=== PATIENT | male | born 1935 | race Caucasian/White ===

== ENCOUNTER 2016-05-17 21:34 | Inpatient (IN) | payer MEDICARE, OTHER ==
--- NOTE | 2016-05-17 21:53 | EDPRACDOC ---
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 PT UNFORTUNATELY HAS VERY ADVANCED DEMENTIA AND IS UNABLE TO PROVIDE ANY HISTORY. Pain Severity: Reports: Moderate Injuries/Pain Location: Reports: lower extremity Reason for Fall: Reports: unknown Loss of Consciousness: unsure Modifying Factors: improves with: movement <Leroy Friend - Last Filed: 05/17/16 23:58> - General Chief Complaint: Fall Stated Complaint: FALL Time Seen by Provider: 05/17/16 21:44 - History of Present Illness Allergies/Adverse Reactions: Allergies donepezil Allergy (Verified 12/19/15 17:34) See Comments HALLUCINATIONS memantine HCl [From Namenda] Allergy (Verified 12/19/15 17:34) See Comments HALLUCINATIONS Home Medications: Ambulatory Orders Alfuzosin HCl [Alfuzosin HCl ER] 10 mg PO DAILY 09/02/14 Dutasteride [Avodart] 0.5 mg PO DAILY 09/02/14 Isosorbide Mononitrate [Isosorbide Mononitrate ER] 30 mg PO DAILY 09/02/14 Omeprazole [Prilosec] 20 mg PO BID 09/02/14 Quetiapine Fumarate [Seroquel] 25 mg PO TID 10/25/15 Acetaminophen [Mapap] 1,000 mg PO Q6H PRN 05/17/16 ED Past Medical History - History Reviewed Yes Nurses notes reviewed and agree except as marked Information Unobtainable: Yes Unable to obtain information due to patient condition - Patient Medical History Neurological History: Reports: Dementia (Alzheimer's) Cardiac History: Reports: Coronary Artery Disease, Hypertension, Hypercholesterolemia GI/ History: Reports: Gastroesophageal Reflux, Diverticulosis Musculoskeletal History: Reports: Arthritis Psychological History: Reports: Depression, Anxiety. Denies: Substance Use Disorder Systemic History: Reports: Cancer (PROSTATE) Surgical History: Reports: Other (Cataracts, XRT for prostate cancer) Date of Last Radiation Treatment: 2004? - Family Medical History Reports: Hypertension, Cancer (MOM). Denies: Diabetes, Stroke, Cardiac Disorders - Social Medical History Smoking Status: Former smoker Social History: Denies: Substance Use Disorder <Leroy Friend - Last Filed: 05/17/16 23:58> EDM Review of Systems - Review of Systems ROS Unobtainable: Yes Review of systems cannot be obtained due to the patient's medical condition <Leroy Friend - Last Filed: 05/17/16 23:58> - Physical Exam Last recorded Vital Signs: Last Vital Signs Temp 98.5 F 05/17/16 21:45 Pulse 68 05/17/16 21:45 Resp 18 05/17/16 21:45 BP 170/83 05/17/16 21:45 Pulse Ox 93 05/17/16 21:45 Oxygen Pulse Oxygen Saturation 93 O2 Device Oxygen Flow Rate Fraction of Inspired Oxygen ( FIO2) <Mati Lucero - Last Filed: 05/17/16 22:56> - Physical Exam Constitutional: Alert (Awake), No apparent distress Oriented to: Person Last recorded Vital Signs: Oxygen Pulse Oxygen Saturation O2 Device Oxygen Flow Rate Fraction of Inspired Oxygen ( FIO2) - HEENT Head: Normal ( normocephalic) Eye Exam: Normal (PERRL, EOMI, Sclera white) Oropharynx: Normal (Pharynx:Moist without exudate,Gums-no swelling) Tympanic Membrane: Normal ENT EAC: Normal TMJ: Normal Nose: No Symptoms Reported (septum midline) Neck: Normal (FROM, trachea at midline) - Respiratory/Cardiovascular Respiratory: Normal - CTA (BBS clear to auscultation without adventitious sounds ) Cardiovascular: Normal (RRR without murmur, gallop or rub) - GI Auscultation: Normal (NABS) Palpation: Normal (Soft,No rebound or guarding, non distended) Tenderness: Non tender Burrell's Sign: Negative - Musculoskeletal Back: negative: Thoracic TTP, Lumbar TTP - Integumentary Skin: Normal, Warm, Dry Lymphatics: Normal (no adenopathy) - Neurologic Memory Impaired: Short-term, Long-term Motor Function: Unable to Test Cranial Nerve: Unable to Test Cerebellar: Unable to Test Mood Description: Normal Thought: Coherent Perception: Normal <Leroy Friend - Last Filed: 05/17/16 23:58> ED Injury/Fall Exam - Physical Exam Head Injury: no evidence of injury Extremity Exam: bony-point tenderness (LEFT HIP AND LEFT KNE), pain with movement (LEFT HIP AND LEFT KNEE), tenderness - Florian Coma Score Best Eye Response (Florian): (4) open spontaneously Best Verbal Response ([place]): (4) confused conversation Best Motor Response (Florian): (6) obeys commands Florian Total: 14 <Leroy Friend - Last Filed: 05/17/16 23:58> - Differential Diagnosis Contusion, Fracture, Sprain - Re-evaluation Re-evaluation 1 Re-evaluation Time: 23:05 (STABLE) - Results 05/17/16 23:15 05/17/16 23:15 - EKG EKG #1 EKG Time: 23:54 -: Yes EKG interpreted by me Rate: bpm: 86 [place]: Normal Rhythm: NSR Block: None Hypertrophy: None ST: Nonsp Comparison: 12/19/15 (NO CHANGE) - Diagnostic Imaging LEFT FEMUR Image interpreted by: Radiologist LEFT FEMUR - 2 VIEW COMPARISON: None. FINDINGS: A subcapital fracture is suspected through the left femoral neck, on correlation with concurrent left hip radiographs. The distal femur appears intact. The knee joint is grossly unremarkable in appearance. A fabella is noted. No knee joint effusion is seen. Diffuse vascular calcifications are noted. IMPRESSION: Subcapital fracture suspected through the left femoral neck, on correlation with concurrent left hip radiographs. No additional fracture seen. Diffuse vascular calcifications noted. LEFT KNEE Image interpreted by: Radiologist LEFT KNEE - COMPLETE 4+ VIEW COMPARISON: None. FINDINGS: No acute fracture or dislocation. There is mild osteopenia. There is narrowing of the knee compartments, more prominent involving the medial compartment compatible with chronic an osteoarthritic changes. No joint effusion. The soft tissues appear unremarkable. IMPRESSION: No fracture or dislocation. LEFT HIP Image interpreted by: Radiologist LEFT HIP (WITH PELVIS) 2-3 VIEWS COMPARISON: CT of the abdomen and pelvis performed 09/02/2014 FINDINGS: Mild cortical irregularity along the base of the left femoral head is thought to reflect a subcapital fracture through the left femoral neck. The left femoral head remains seated at the acetabulum. Mild degenerative change is noted at the lower lumbar spine. The right hip joint is unremarkable in appearance. Postoperative change is seen overlying the prostate bed. The sacroiliac joints are unremarkable in appearance. The visualized bowel gas pattern is grossly unremarkable in appearance. IMPRESSION: Suspect subcapital fracture through the left femoral neck. CXR Image interpreted by: Radiologist CHEST 1 VIEW COMPARISON: Multiple priors, most recently chest x-ray 12/19/2015. FINDINGS: No acute consolidative airspace disease. No pleural effusions. Nodular density projecting over the lateral aspect of the right lower lung measuring approximately 11 mm superimposed over the posterior aspect of the right eighth rib and the anterior aspect of the right fifth rib. No pneumothorax. No evidence of pulmonary edema. Heart size is normal. Upper mediastinal contours are within normal limits. Atherosclerosis in the thoracic aorta. IMPRESSION: 1. No radiographic evidence of acute cardiopulmonary disease. 2. Atherosclerosis. 3. Nodular density projecting over the right mid lung new compared to prior examination 09/02/2014. Further evaluation with nonemergent chest CT is recommended in the near future to exclude neoplasm. <Leroy Friend - Last Filed: 05/17/16 23:58> - Departure Yes I personally saw and evaluated the patient. Disposition: Admit IP To This Hospital Education/Counseling Given To: Patient Education/Counseling Given Regarding: Diagnosis, Treatment, Prognosis Decision to Admit Time: 22:56 Decision to admit date: 05/17/16 Decision to admit: from ED - Physician Consulted Orthopedics Time Called: 22:56 Provider Called: Israel Burden Time Digital Marketing Assistant Returned Call: 22:56 <Mati Lucero - Last Filed: 05/17/16 22:56> <Leroy Friend - Last Filed: 05/17/16 23:58> - Departure Condition: Stable Final Diagnosis: Closed left hip fracture Qualifiers: Encounter type: initial encounter Qualified Code(s): S72.002A - Fracture of unspecified part of neck of left femur, initial encounter for closed fracture Instructions: RICE: Routine Care for Injuries Referrals: Arvind Loo MD [Primary Care Provider] - One Week
[2016-05-17] MEDS ORDERED: MORPHINE 4 MG/ML INJECTION IV ONE (22:49)
[2016-05-17] MEDS ORDERED: ONDANSETRON HCL 4 MG/2 ML VIAL IV ONE (22:49)
--- NOTE | 2016-05-17 22:59 | DIRPT ---
CLINICAL DATA: Acute onset of fall twice today, with left hip pain. Initial encounter. EXAM: LEFT HIP (WITH PELVIS) 2-3 VIEWS COMPARISON: CT of the abdomen and pelvis performed 09/02/2014 FINDINGS: Mild cortical irregularity along the base of the left femoral head is thought to reflect a subcapital fracture through the left femoral neck. The left femoral head remains seated at the acetabulum. Mild degenerative change is noted at the lower lumbar spine. The right hip joint is unremarkable in appearance. Postoperative change is seen overlying the prostate bed. The sacroiliac joints are unremarkable in appearance. The visualized bowel gas pattern is grossly unremarkable in appearance. IMPRESSION: Suspect subcapital fracture through the left femoral neck. Electronically Signed By: Gorge Be M.D. On: 05/17/2016 22:57
--- NOTE | 2016-05-17 23:08 | DIRPT ---
CLINICAL DATA: 80-year-old male with fall and left knee pain. EXAM: LEFT KNEE - COMPLETE 4+ VIEW COMPARISON: None. FINDINGS: No acute fracture or dislocation. There is mild osteopenia. There is narrowing of the knee compartments, more prominent involving the medial compartment compatible with chronic an osteoarthritic changes. No joint effusion. The soft tissues appear unremarkable. IMPRESSION: No fracture or dislocation. Electronically Signed By: Layo Solorzano M.D. On: 05/17/2016 23:05
--- NOTE | 2016-05-17 23:09 | DIRPT ---
CLINICAL DATA: Status post 2 falls, with left leg pain. Initial encounter. EXAM: LEFT FEMUR - 2 VIEW COMPARISON: None. FINDINGS: A subcapital fracture is suspected through the left femoral neck, on correlation with concurrent left hip radiographs. The distal femur appears intact. The knee joint is grossly unremarkable in appearance. A fabella is noted. No knee joint effusion is seen. Diffuse vascular calcifications are noted. IMPRESSION: Subcapital fracture suspected through the left femoral neck, on correlation with concurrent left hip radiographs. No additional fracture seen. Diffuse vascular calcifications noted. Electronically Signed By: Gorge Be M.D. On: 05/17/2016 23:06
--- NOTE | 2016-05-17 23:10 | DIRPT ---
CLINICAL DATA: 80-year-old male with history of multiple recent falls earlier today. Left hip pain. EXAM: CHEST 1 VIEW COMPARISON: Multiple priors, most recently chest x-ray 12/19/2015. FINDINGS: No acute consolidative airspace disease. No pleural effusions. Nodular density projecting over the lateral aspect of the right lower lung measuring approximately 11 mm superimposed over the posterior aspect of the right eighth rib and the anterior aspect of the right fifth rib. No pneumothorax. No evidence of pulmonary edema. Heart size is normal. Upper mediastinal contours are within normal limits. Atherosclerosis in the thoracic aorta. IMPRESSION: 1. No radiographic evidence of acute cardiopulmonary disease. 2. Atherosclerosis. 3. Nodular density projecting over the right mid lung new compared to prior examination 09/02/2014. Further evaluation with nonemergent chest CT is recommended in the near future to exclude neoplasm. Electronically Signed By: Refugio Haywood M.D. On: 05/17/2016 23:08
[2016-05-17] MEDS ORDERED: CHLORHEXIDINE (HIBICLENS) 4 OZ BOTTLE TOP ONE (23:21)
[2016-05-17] MEDS ORDERED: ENALAPRILAT 1.25 MG/ML VIAL IV ONE (23:28)
--- NOTE | 2016-05-17 23:33 | HISTPHYS ---
- Chief Complaint left hip pain - History of Present Illness PRIMARY CARE PROVIDER: Dr. Arvind Loo Patient resides at [facility] assisted living facility. HPI: The patient is a 68 yo man with severe dementia, who fell at [facility] this evening. He was brought to the emergency department and found to have a left hip fracture. He cannot give history so his sister gives history. The patient's daughter has healthcare power of atty, but the daughter is herself hospitalized with an acute stroke, so will not be able to serve as POA currently. Onset: today. Duration: constant. Location: left hip. Radiation: none. Character: sharp, severe. Alleviated by: Nothing. Exacerbated by: Moving. Associated Symptoms: None known. Treatments: none at home except usual medications. - Medical History Cardiac History: Reports: Hypertension, Hypercholesterolemia GI/ History: Reports: Gastroesophageal Reflux (GI bleed 2014 x 2. EGD 2015: sm antral polyp not removed, no UGI bleeding.), Diverticulosis (Colonoscopy Dr. Monson, 08/2014, diverticular bleed) Musculoskeletal History: Reports: Arthritis Systemic History: Reports: Cancer (PROSTATE) Neurological History: Reports: Dementia (Alzheimer's) Psychological History: Reports: Depression, Anxiety. Denies: Substance Use Disorder - Surgical History Reports: Other (Cataracts, XRT for prostate cancer) - Medictions/Allergies Allergies donepezil Allergy (Verified 12/19/15 17:34) See Comments HALLUCINATIONS memantine HCl [From Namenda] Allergy (Verified 12/19/15 17:34) See Comments HALLUCINATIONS Current Medication List: Reviewed Home Medications Alfuzosin HCl [Alfuzosin HCl ER] 10 mg PO DAILY 09/02/14 Dutasteride [Avodart] 0.5 mg PO DAILY 09/02/14 Isosorbide Mononitrate [Isosorbide Mononitrate ER] 30 mg PO DAILY 09/02/14 Omeprazole [Prilosec] 20 mg PO BID 09/02/14 Quetiapine Fumarate [Seroquel] 25 mg PO TID 10/25/15 Acetaminophen [Mapap] 1,000 mg PO Q6H PRN 05/17/16 - Family History Reports: Hypertension (Mother), Diabetes (Sister, possibly grandfather), Cancer (Mother: lung cancer), Other (Mother: Raynauds). Denies: Stroke, Cardiac Disorders - Social History Smoking Status: Former smoker (Former smoker, quit years ago.) Social History: Denies: Alcohol Use, Substance Use Disorder - Review of Systems Yes Review of systems cannot be obtained due to the patient's medical condition - Physical Exam Vital Signs: Initial Vitals Temperature 98.5 F 05/17/16 21:45 Pulse Rate 68 05/17/16 21:45 Respiratory Rate 18 05/17/16 21:45 Blood Pressure 170/83 05/17/16 21:45 Pulse Oxygen Saturation 93 05/17/16 21:45 Weight: 63.5 kg Height: 5'9" BMI: 20.7 - Other Exam Other Exam Findings: GENERAL: Ill-appearing, well nourished, in acute distress. HEENT: Normocephalic, atraumatic; pupils equal and round. Nares patent, without discharge or bleeding. No oropharyngeal lesions or erythema. Mucous membranes are dry. NECK: is supple, no masses, trachea midline. RESPIRATORY: Clear to auscultation bilaterally. Chest wall movements are symmetric. No use of accessory muscles to breathe. No wheezing, rales, rhonchi. CARDIOVASCULAR: Normal S1, S2. Murmur 2/6 systolic. No rubs, or gallops. PMI non -displaced. Carotids: no carotid bruits. No bradycardia or tachycardia. DP pulses 2+ bilaterally. GI: soft, nontender, non-distended, normal active bowel sounds. No hepatosplenomegaly. INTEGUMENT: Clean, dry, and intact. No rashes. MUSCULOSKELETAL: No cyanosis. No clubbing. Edema: none bilaterally. Tenderness to palpation of the left hip. NEUROLOGICAL: Cranial nerves 2-12 grossly intact, as best can be determined in this patient who is not following commands. Reflexes: 2+ bilaterally. Babinski: toes downgoing bilaterally. Patient unable to cooperate with further neurologic exam. He would say a few words but otherwise was silent. Words he said did not usually correspond to the question asked. No slurred speech. PSYCHIATRIC: Not oriented. Agitated affect. LYMPHATIC: No cervical lymphadenopathy. No supraclavicular lymphadenopathy. - Lab Results Laboratory Tests 05/17/16 05/17/16 05/17/16 23:15 23:15 23:15 WBC 11.4 H RBC 3.65 L Hgb 10.9 L Hct 33.2 L MCV 91 MCH 29.8 MCHC 32.7 L RDW 14.6 H Plt Count 192 MPV 9.0 Neut % (Auto) 72.0 Lymph % (Auto) 20.4 [place] % (Auto) 6.5 Eos % (Auto) 0.5 Baso % (Auto) 0.6 Absolute Neuts (auto) 8.21 H Absolute Lymphs (auto) 2.28 PT 12.9 H INR 1.3 APTT 27.4 Sodium 141 Potassium 4.1 Chloride 105 Carbon Dioxide 28 Anion Gap 12 BUN 31 H Creatinine 1.00 Estimated GFR (MDRD) > 60 Glucose 92 Calculated Osmolality 278 Calcium 9.0 Corrected Calcium 9.3 Total Bilirubin 0.6 AST 26 ALT 35 Alkaline Phosphatase 97 Creatine Kinase 86 Troponin I < 0.01 Total Protein 6.9 Albumin 3.7 Urine Color Urine Clarity Urine pH Ur Specific [place] Urine Protein Urine Glucose (UA) Urine Ketones Urine Occult Blood Urine Nitrite Urine Bilirubin Urine Urobilinogen Ur Leukocyte Esterase Urine WBC Ur Epithelial Cells Urine Mucus Blood Type Antibody Screen - Diagnostic Findings EK bpm. Normal sinus rhythm. Low voltage. Cannot rule out anterior infarct , age undetermined. Reviewed EKG personally. Hip/Pelvis x-ray: EXAM: LEFT HIP (WITH PELVIS) 2-3 VIEWS COMPARISON: CT of the abdomen and pelvis performed 09/02/2014 FINDINGS: Mild cortical irregularity along the base of the left femoral head is thought to reflect a subcapital fracture through the left femoral neck. The left femoral head remains seated at the acetabulum. Mild degenerative change is noted at the lower lumbar spine. The right hip joint is unremarkable in appearance. Postoperative change is seen overlying the prostate bed. The sacroiliac joints are unremarkable in appearance. The visualized bowel gas pattern is grossly unremarkable in appearance. IMPRESSION: Suspect subcapital fracture through the left femoral neck. EXAM: LEFT FEMUR - 2 VIEW COMPARISON: None. FINDINGS: A subcapital fracture is suspected through the left femoral neck, on correlation with concurrent left hip radiographs. The distal femur appears intact. The knee joint is grossly unremarkable in appearance. A fabella is noted. No knee joint effusion is seen. Diffuse vascular calcifications are noted. IMPRESSION: Subcapital fracture suspected through the left femoral neck, on correlation with concurrent left hip radiographs. No additional fracture seen. Diffuse vascular calcifications noted. EXAM: LEFT KNEE - COMPLETE 4+ VIEW COMPARISON: None. FINDINGS: No acute fracture or dislocation. There is mild osteopenia. There is narrowing of the knee compartments, more prominent involving the medial compartment compatible with chronic an osteoarthritic changes. No joint effusion. The soft tissues appear unremarkable. IMPRESSION: No fracture or dislocation. Chest x-ray, viewed personally: EXAM: CHEST 1 VIEW COMPARISON: Multiple priors, most recently chest x-ray 12/19/2015. FINDINGS: No acute consolidative airspace disease. No pleural effusions. Nodular density projecting over the lateral aspect of the right lower lung measuring approximately 11 mm superimposed over the posterior aspect of the right eighth rib and the anterior aspect of the right fifth rib. No pneumothorax. No evidence of pulmonary edema. Heart size is normal. Upper mediastinal contours are within normal limits. Atherosclerosis in the thoracic aorta. IMPRESSION: 1. No radiographic evidence of acute cardiopulmonary disease. 2. Atherosclerosis. 3. Nodular density projecting over the right mid lung new compared to prior examination 09/02/2014. Further evaluation with nonemergent chest CT is recommended in the near future to exclude neoplasm. - Assessment (1) Closed left hip fracture S72.002A - FRACTURE OF UNSP PART OF NECK OF LEFT FEMUR, INIT Acute Qualifiers: Encounter type: initial encounter Fracture healing: F Qualified Code(s): S72.002A - Fracture of unspecified part of neck of left femur, initial encounter for closed fracture Patient is at moderate risk due to comorbidities and age. Recommend proceeding with surgery if family wants to proceed. (2) Pulmonary nodule R91.1 - SOLITARY PULMONARY NODULE Acute Present on Admission: Yes Found on x-ray. Patient's sister informed. CXR findings: IMPRESSION: 1. No radiographic evidence of acute cardiopulmonary disease. 2. Atherosclerosis. 3. Nodular density projecting over the right mid lung new compared to prior examination 09/02/2014. Further evaluation with nonemergent chest CT is recommended in the near future to exclude neoplasm Plan: Outpatient follow up with primary care physician for further evaluation. (3) Left hip pain M25.552 - PAIN IN LEFT HIP Acute Present on Admission: Yes PRN IV morphine. (4) Dehydration E86.0 - DEHYDRATION Acute Present on Admission: Yes IVF (5) Alzheimer's dementia G30.9 - ALZHEIMER'S DISEASE, UNSPECIFIED; F02.80 - DEMENTIA IN OTH DISEASES CLASSD ELSWHR W/O BEHAVRL DISTURB Chronic Plan: Will be difficult to conduct physical therapy due to patient's dementia. Monitor. Supportive care. Case Care Discussed with: Patient, Consultants, Family, Nursing Staff Total Time: 60 min
[2016-05-17 23:37] LABS: AUTOMATED BASOPHIL 0.6 % (0-2); AUTOMATED EOSINOPHIL 0.5 % (0-5); AUTOMATED LYMPH 20.4 % (17-44); AUTOMATED MONOCYTE 6.5 % (3-10)
[2016-05-17 23:44] LABS: PARTIAL THROMB. TIME 27.4 SEC (22-35); PT-INR 1.3
[2016-05-17] MEDS ORDERED: MUPIROCIN 2% OINT 22 GM TUBE NAS SCH (23:45)
[2016-05-17 23:53] LABS: BLOOD UREA NITROGEN 31 MG/DL (9-20); CALC CORRECTED 9.3 MG/DL (8.4-10.2); CALCULATED OSMOLALITY 278 MOs/Kg (270-290); CHLORIDE 105 mEq/L (98-107); CPK TOTAL WITH POSSIBLE MB 86 IU/L (55-170); GLUCOSE 92 MG/DL (70-99); SODIUM LEVEL 141 mEq/L (137-146); TOTAL PROTEIN 6.9 G/DL (6.3-8.2)
[2016-05-18] MEDS ORDERED: ACETAMINOPHEN 325 MG SUPP PR PRN (00:44)
[2016-05-18] MEDS ORDERED: ACETAMINOPHEN 325 MG/TAB TABLET PO PRN (00:44)
[2016-05-18] MEDS ORDERED: GUAIFEN 100 MG-DEXTROMETH 10 MG PER 5 ML PO PRN (00:44)
[2016-05-18] MEDS ORDERED: PROMETHAZINE 25 MG/ML VIAL IV PRN (00:44)
[2016-05-18] MEDS ORDERED: SIMETHICONE 80 MG TAB PO PRN (00:44)
[2016-05-18] MEDS ORDERED: Docusate Sodium 100 MG CAP PO PRN (00:44)
[2016-05-18] MEDS ORDERED: SENNA CONCENTRATE TAB PO PRN (00:44)
[2016-05-18] MEDS ORDERED: TEMAZEPAM 15 MG CAP PO PRN (00:44)
[2016-05-18] MEDS ORDERED: ONDANSETRON HCL 4 MG/2 ML VIAL IV PRN ×2 (00:44→14:17)
[2016-05-18] MEDS ORDERED: BISACODYL 5 MG TAB PO PRN (00:44)
[2016-05-18] MEDS ORDERED: BENZONATATE 100 MG PERLES PO PRN (00:44)
[2016-05-18] MEDS: NS 1,000 ML IV SCH ×3 (01:04→13:04)
[2016-05-18] MEDS: HALOPERIDOL 5 MG/ML VIAL IM ONE (01:25)
[2016-05-18 01:26] LABS: LEUKOCYTES/URINE NEG (NEGATIVE); NITRITE/URINE NEG (NEGATIVE); URINE OCCULT BLOOD NEG (NEG/TRACE)
[2016-05-18 01:29] LABS: WBC/URINE 0-2 (0-2)
[2016-05-18] MEDS: ISOSORBIDE MONONITRATE 30 MG TAB PO SCH (05:40)
[2016-05-18] MEDS: QUETIAPINE FUMARATE 25 MG TAB PO SCH ×2 (05:40→14:09)
[2016-05-18] MEDS: PANTOPRAZOLE 40 MG TAB PO SCH (05:40)
[2016-05-18] MEDS ORDERED: CEFAZOLIN 1 GM VIAL IV ONE (06:00)
--- NOTE | 2016-05-18 07:46 | PCM.ORTHCO ---
Consultation Date: 05/18/16 Requesting Physician: Emmanuel Live Reason for Consult: Fracture - History of Present Illness The patient is a 68 yo man with dementia, who fell at [facility] last night. Fall was unwitnessed. He was brought to the emergency department and found to have a left hip fracture. He cannot give history so his sister gave history. Chief Complaint: left hip pain - Past Medical and Surgical History Cardiac History: Reports: Coronary Artery Disease, Hypertension, Hypercholesterolemia GI/ History: Reports: Gastroesophageal Reflux, Diverticulosis Systemic History: Reports: Cancer (PROSTATE) Musculoskeletal History: Reports: Arthritis Psychological History: Reports: Depression, Anxiety. Denies: Alcoholism, Substance Use Disorder Neurological History: Reports: Dementia (Alzheimer's) Past Surgical History: Reports: Other (Cataracts, XRT for prostate cancer) Allergies donepezil Allergy (Verified 12/19/15 17:34) See Comments HALLUCINATIONS memantine HCl [From Namenda] Allergy (Verified 12/19/15 17:34) See Comments HALLUCINATIONS Home Medications Alfuzosin HCl [Alfuzosin HCl ER] 10 mg PO DAILY 09/02/14 Dutasteride [Avodart] 0.5 mg PO DAILY 09/02/14 Isosorbide Mononitrate [Isosorbide Mononitrate ER] 30 mg PO DAILY 09/02/14 Omeprazole [Prilosec] 20 mg PO BID 09/02/14 Quetiapine Fumarate [Seroquel] 25 mg PO TID 10/25/15 Acetaminophen [Mapap] 1,000 mg PO Q6H PRN 05/17/16 - Social History Smoking Status: Former smoker (Former smoker, quit years ago.) Social History: Denies: Alcohol Use, Substance Use Disorder - Family History Reports: Hypertension (Mother), Diabetes (Sister, possibly grandfather), Cancer (Mother: lung cancer), Other (Mother: Raynauds). Denies: Stroke, Cardiac Disorders - Review of Systems Yes Review of systems cannot be obtained due to the patient's medical condition (confused and sleepy through exam) - Physical Exam Vital Signs: Initial Vitals Temperature 98.5 F 05/17/16 21:45 Pulse Rate 68 05/17/16 21:45 Respiratory Rate 18 05/17/16 21:45 Blood Pressure 170/83 05/17/16 21:45 Pulse Oxygen Saturation 93 05/17/16 21:45 Constitutional: No apparent distress, Confused Oriented to: Not Oriented - Musculoskeletal Extremities: Pedal Pulse (2+), Other (LLE: Shortened and externally rotated. Tender to palpation of groin and positive log roll. No erythema or ecchymosis. Skin intact. ROM not tested. Pedal pulse 2+ and brisk capillary refill.) - Integumentary Skin: Normal - Neurologic Memory Impaired: Unable to Test Motor Function: Unable to Test - Lab Results Laboratory Results - last 24 hr 05/17/16 05/17/16 05/17/16 23:15 23:15 23:15 WBC 11.4 H RBC 3.65 L Hgb 10.9 L Hct 33.2 L MCV 91 MCH 29.8 MCHC 32.7 L RDW 14.6 H Plt Count 192 MPV 9.0 Neut % (Auto) 72.0 Lymph % (Auto) 20.4 [place] % (Auto) 6.5 Eos % (Auto) 0.5 Baso % (Auto) 0.6 Absolute Neuts (auto) 8.21 H Absolute Lymphs (auto) 2.28 PT 12.9 H INR 1.3 APTT 27.4 Sodium 141 Potassium 4.1 Chloride 105 Carbon Dioxide 28 Anion Gap 12 BUN 31 H Creatinine 1.00 Estimated GFR (MDRD) > 60 Glucose 92 Calculated Osmolality 278 Calcium 9.0 Corrected Calcium 9.3 Total Bilirubin 0.6 AST 26 ALT 35 Alkaline Phosphatase 97 Creatine Kinase 86 Troponin I < 0.01 Total Protein 6.9 Albumin 3.7 Urine Color Urine Clarity Urine pH Ur Specific [place] Urine Protein Urine Glucose (UA) Urine Ketones Urine Occult Blood Urine Nitrite Urine Bilirubin Urine Urobilinogen Ur Leukocyte Esterase Urine WBC Ur Epithelial Cells Urine Mucus Blood Type Antibody Screen 05/18/16 05/18/16 00:11 01:06 WBC RBC Hgb Hct MCV MCH MCHC RDW Plt Count MPV Neut % (Auto) Lymph % (Auto) [place] % (Auto) Eos % (Auto) Baso % (Auto) Absolute Neuts (auto) Absolute Lymphs (auto) PT INR APTT Sodium Potassium Chloride Carbon Dioxide Anion Gap BUN Creatinine Estimated GFR (MDRD) Glucose Calculated Osmolality Calcium Corrected Calcium Total Bilirubin AST ALT Alkaline Phosphatase Creatine Kinase Troponin I Total Protein Albumin Urine Color Yellow Urine Clarity Clear Urine pH 7.0 Ur Specific [place] 1.010 Urine Protein Neg Urine Glucose (UA) Neg Urine Ketones Neg Urine Occult Blood Neg Urine Nitrite Neg Urine Bilirubin Neg Urine Urobilinogen 0.2 Ur Leukocyte Esterase Neg Urine WBC 0-2 Ur Epithelial Cells Occ Urine Mucus Occ Blood Type B POSITIVE Antibody Screen Negative - Diagnostic Findings Exam(s): [id number] RAD/DG HIP COMPLETE 2+V-L CLINICAL DATA: Acute onset of fall twice today, with left hip pain. Initial encounter. EXAM: LEFT HIP (WITH PELVIS) 2-3 VIEWS COMPARISON: CT of the abdomen and pelvis performed 09/02/2014 FINDINGS: Mild cortical irregularity along the base of the left femoral head is thought to reflect a subcapital fracture through the left femoral neck. The left femoral head remains seated at the acetabulum. Mild degenerative change is noted at the lower lumbar spine. The right hip joint is unremarkable in appearance. Postoperative change is seen overlying the prostate bed. The sacroiliac joints are unremarkable in appearance. The visualized bowel gas pattern is grossly unremarkable in appearance. IMPRESSION: Suspect subcapital fracture through the left femoral neck. - Assessment/Plan (1) Closed left hip fracture S72.002A - FRACTURE OF UNSP PART OF NECK OF LEFT FEMUR, INIT Acute Present on Admission: Yes initial encounter F S72.002A - Fracture of unspecified part of neck of left femur, initial encounter for closed fracture Case Care Discussed with: Nursing Staff Plan: Diagnosis and plan was discussed with patient's family last night. Conservative vs surgical treatment were discussed as was the fact that conservative treatment would not be a good option given his altered mental status. Risks were discussed with the patient's sister to include infection, malunion, nonunion, continued pain with range of motion, DVT, pulmonary embolism, stroke, failure of hardware, painful hardware, neurovascular injury, and possible . She wished to proceed with surgery for him. Consent was be obtained for left hip hemiarthroplasty and surgery will be scheduled for this afternoon as long as patient is medically stable. Continue pain management in the meantime. NWB status.
[2016-05-18] MEDS ORDERED: ALFUZOSIN HCL 10 MG PO SCH (09:00)
[2016-05-18] MEDS: DUTASTERIDE 0.5 MG CAP PO SCH (09:00)
[2016-05-18] MEDS: TAMSULOSIN HCL 0.4 MG CAP PO SCH (09:00)
[2016-05-18] MEDS ORDERED: Non-Formulary Medication ITEM (Omeprazole 20 MG) PO SCH (09:00)
[2016-05-18] MEDS ORDERED: LORAZEPAM 2 MG/ML VIAL IV PRN (13:45)
[2016-05-18] MEDS ORDERED: HYDROmorphone 1 MG INJECTION IV ONE (14:00)
[2016-05-18] MEDS ORDERED: LORAZEPAM 2 MG/ML VIAL IV ONE (14:00)
--- NOTE | 2016-05-18 14:06 | GENMEDPROG ---
Chief Complaint: Confused but no distress. Does not follow commands Notes Reviewed: Yes Events from last night noted and discussed with Clinical Staff Current Medication List: Reviewed Currently: Denies: Cough, Wheezing, JASMINE, SOB, Nausea and Vomiting, Abdominal Pain - Physical Examination Vital Signs and I&O: Last Vital Signs Temp 99.2 F 05/18/16 10:00 Pulse 83 05/18/16 10:00 Resp 18 05/18/16 10:00 BP 134/60 05/18/16 10:00 Pulse Ox 84 L 05/18/16 10:00 Oxygen Pulse Oxygen Saturation 84 O2 Device Room Air Oxygen Flow Rate Fraction of Inspired Oxygen ( FIO2) Intake & Output 05/15/16 05/16/16 05/17/16 05/18/16 23:59 23:59 23:59 23:59 Intake Total 484 Output Total 200 Balance 284 Patient's weight 63.588 kg General: Alert, No acute distress, Well nourished. negative: Oriented x3, Cooperative HEENT: Normal, PERRLA, EOMI, Anicteric Sclera Neck: Non-tender, Full range of motion. negative: JVD Lymphatics: Normal (no adenopathy) Respiratory: Normal - CTA (BBS clear to auscultation without adventitious sounds ) Cardiovascular: Regular rate and rhythm, No Gallops,Rubs/Murmurs GI: Normal bowel sounds, Soft, Non tender, No hepatospenomegaly Extremities/Musculoskeletal: Normal pulses, Tenderness (Right lower extremity) Skin: Warm,Dry and Intact. negative: No rashes, No breakdown, No significant lesion Neurological: Strength at 5/5 X4 ext, Normal tone, Cranial nerves 3-12 NL. negative: Normal speech Psych/Mental Status: Confused Lab/DI/Studies Reviewed: Laboratory Results - last 24 hr 05/17/16 05/17/16 05/17/16 23:15 23:15 23:15 WBC 11.4 H RBC 3.65 L Hgb 10.9 L Hct 33.2 L MCV 91 MCH 29.8 MCHC 32.7 L RDW 14.6 H Plt Count 192 MPV 9.0 Neut % (Auto) 72.0 Lymph % (Auto) 20.4 [place] % (Auto) 6.5 Eos % (Auto) 0.5 Baso % (Auto) 0.6 Absolute Neuts (auto) 8.21 H Absolute Lymphs (auto) 2.28 PT 12.9 H INR 1.3 APTT 27.4 Sodium 141 Potassium 4.1 Chloride 105 Carbon Dioxide 28 Anion Gap 12 BUN 31 H Creatinine 1.00 Estimated GFR (MDRD) > 60 Glucose 92 Calculated Osmolality 278 Calcium 9.0 Corrected Calcium 9.3 Total Bilirubin 0.6 AST 26 ALT 35 Alkaline Phosphatase 97 Creatine Kinase 86 Troponin I < 0.01 Total Protein 6.9 Albumin 3.7 Urine Color Urine Clarity Urine pH Ur Specific [place] Urine Protein Urine Glucose (UA) Urine Ketones Urine Occult Blood Urine Nitrite Urine Bilirubin Urine Urobilinogen Ur Leukocyte Esterase Urine WBC Ur Epithelial Cells Urine Mucus Blood Type Antibody Screen 05/18/16 05/18/16 00:11 01:06 WBC RBC Hgb Hct MCV MCH MCHC RDW Plt Count MPV Neut % (Auto) Lymph % (Auto) [place] % (Auto) Eos % (Auto) Baso % (Auto) Absolute Neuts (auto) Absolute Lymphs (auto) PT INR APTT Sodium Potassium Chloride Carbon Dioxide Anion Gap BUN Creatinine Estimated GFR (MDRD) Glucose Calculated Osmolality Calcium Corrected Calcium Total Bilirubin AST ALT Alkaline Phosphatase Creatine Kinase Troponin I Total Protein Albumin Urine Color Yellow Urine Clarity Clear Urine pH 7.0 Ur Specific [place] 1.010 Urine Protein Neg Urine Glucose (UA) Neg Urine Ketones Neg Urine Occult Blood Neg Urine Nitrite Neg Urine Bilirubin Neg Urine Urobilinogen 0.2 Ur Leukocyte Esterase Neg Urine WBC 0-2 Ur Epithelial Cells Occ Urine Mucus Occ Blood Type B POSITIVE Antibody Screen Negative - Assessment (1) Closed left hip fracture Acute S72.002A - FRACTURE OF UNSP PART OF NECK OF LEFT FEMUR, INIT Qualifiers: Encounter type: initial encounter Fracture healing: F Qualified Code(s): S72.002A - Fracture of unspecified part of neck of left femur, initial encounter for closed fracture Comment/Plan: Patient is at moderate risk due to comorbidities and age. Recommend proceeding with surgery if family wants to proceed. (2) Anemia Acute D64.9 - ANEMIA, UNSPECIFIED Qualifiers: Anemia type: iron deficiency Iron deficiency anemia type: chronic blood loss Vitamin B12 deficiency anemia type: V Folate deficiency anemia type: F Bone marrow failure anemia type: B Hemolytic anemia type: H Other causes of anemia: O Qualified Code(s): D50.0 - Iron deficiency anemia secondary to blood loss (chronic) Comment/Plan: Monitor counts. Transfuse as needed. (3) Alzheimer's dementia Chronic G30.9 - ALZHEIMER'S DISEASE, UNSPECIFIED; F02.80 - DEMENTIA IN OTH DISEASES CLASSD ELSWHR W/O BEHAVRL DISTURB Comment/Plan: Severe. Unable to participate in his care (4) CAD (coronary artery disease) Chronic I25.10 - ATHSCL HEART DISEASE OF [place] CORONARY ARTERY W/O ANG PCTRS Qualifiers: Coronary Disease-Associated Artery/Lesion type: [place] artery [place] vs. transplanted heart: [place] heart Associated angina: without angina Qualified Code(s): I25.10 - Atherosclerotic heart disease of [place] coronary artery without angina pectoris Comment/Plan: Continue home medications and monitor Case Care Discussed with: Nursing Staff, Physical Therapy, Resource Management, Respiratory Therapy
[2016-05-18] MEDS ORDERED: LABETALOL 20 MG/4 ML SYRINGE IV PRN (14:17)
[2016-05-18] MEDS ORDERED: MEPERIDINE 25 MG/ML TUBEX IV PRN (14:17)
[2016-05-18] MEDS ORDERED: hydrALAZINE 20 MG/ML VIAL IV PRN (14:17)
[2016-05-18] MEDS ORDERED: HYDROmorphone 1 MG INJECTION IV PRN ×2 (14:17)
[2016-05-18] MEDS ORDERED: FENTANYL 100 MCG/2 ML VIAL IV PRN ×2 (14:17)
[2016-05-18] MEDS ORDERED: ONDANSETRON HCL 4 MG ODT TAB PO PRN (14:17)
[2016-05-18] MEDS ORDERED: HALOPERIDOL 5 MG/ML VIAL IM PRN (19:09)
[2016-05-18] MEDS: LORAZEPAM 2 MG/ML VIAL IV PRN (19:33)
[2016-05-19] MEDS: NS 1,000 ML IV SCH (02:01)
[2016-05-19] MEDS: LORAZEPAM 2 MG/ML VIAL IV PRN (04:36)
[2016-05-19] MEDS: QUETIAPINE FUMARATE 25 MG TAB PO SCH ×4 (06:41→20:28)
[2016-05-19] MEDS: ISOSORBIDE MONONITRATE 30 MG TAB PO SCH (06:42)
[2016-05-19] MEDS: PANTOPRAZOLE 40 MG TAB PO SCH (06:42)
[2016-05-19] MEDS ORDERED: LABETALOL 20 MG/4 ML SYRINGE IV PRN (07:11)
[2016-05-19] MEDS ORDERED: HYDROmorphone 1 MG INJECTION IV PRN ×2 (07:11)
[2016-05-19] MEDS ORDERED: ONDANSETRON HCL 4 MG ODT TAB PO PRN (07:11)
[2016-05-19] MEDS ORDERED: hydrALAZINE 20 MG/ML VIAL IV PRN (07:11)
[2016-05-19] MEDS ORDERED: MEPERIDINE 25 MG/ML TUBEX IV PRN (07:11)
[2016-05-19] MEDS ORDERED: FENTANYL 100 MCG/2 ML VIAL IV PRN ×2 (07:11)
[2016-05-19] MEDS ORDERED: ONDANSETRON HCL 4 MG/2 ML VIAL IV PRN (07:11)
--- NOTE | 2016-05-19 07:11 | HIM.ANES ---
Anesthesia Evaluation & Plan - Focused Review of Systems Information Unobtainable: Yes Unable to obtain information due to patient condition Cardiac History: Yes: Hx Hypertension, Hx Cardiac Disorders HEENT: Yes: Cataract Removal (BOTH EYES), Hx Vision Problem (WEARS GLASSES) Gastrointestinal: Yes: Hx Gastroesophageal Reflux Disease, Hx Gastrointestinal Disorders, Hx Diverticulosis (Colonoscopy Dr. Monson, 08/2014, diverticular bleed ), Hx Colonoscopy (February 2006- colonic polyp, diverticulosis and mild radiation proctitis) No: Hx Endoscopy Neurological/Musculoskeletal: Yes: Hx Alzheimer's Disease, Hx Dementia ( Alzheimer's), Hx Neurological Disorders Other Neurological Problems: alzhimers dementia Psychological: Yes Hx Anxiety, Yes Hx Depression, No Hx Mental/Emotional Disorders Blood/Autoimmune: Yes: Hx Blood Transfusions No: Hx AIDS, Hx Hepatitis (type) Smoking Status: Former smoker (Former smoker, quit years ago.) Past Social History: Denies: Alcohol Use, Substance Use Disorder Surgical History: Yes: Other (Cataracts, XRT for prostate cancer) Other Surgical History: None - Focused Physical Exam NPO since: midnight Mallampati: Class II Thyromental Distance: Greater than 3 Neck: Limited Range of Motion Cardiovascular/Chest: Normal Respiratory: Lungs clear Any problems with anesthesia, including nausea and vomiting?: (NA) Any relatives with a history of Malignant Hyperthermia?: No Other: Problem List Problem Status Onset Closed left hip fracture Acute Dehydration Acute Left hip pain Acute Pulmonary nodule Acute Anemia Acute GI hemorrhage Acute Lower GI bleed Acute Alzheimer's dementia Chronic BPH (benign prostatic hyperplasia) Chronic CAD (coronary artery disease) Chronic Diverticulosis Chronic PT/PTT/INR/ PT 12.9 SEC (9.2-11.2) H 05/17/16 23:15 INR 1.3 05/17/16 23:15 APTT 27.4 SEC (22-35) 05/17/16 23:15 Allergies Allergy/AdvReac Type Severity Reaction Status Date / Time donepezil Allergy See Verified 12/19/15 17:34 Comments memantine HCl [From Namenda] Allergy See Verified 12/19/15 17:34 Comments Home Medications Medication Instructions Recorded Last Taken Type Alfuzosin HCl [Alfuzosin HCl ER] 10 mg PO DAILY 09/02/14 12/19/15 History Dutasteride [Avodart] 0.5 mg PO DAILY 09/02/14 12/19/15 History Isosorbide Mononitrate [Isosorbide 30 mg PO DAILY 09/02/14 12/19/15 History Mononitrate ER] Omeprazole [Prilosec] 20 mg PO BID 09/02/14 12/19/15 History Quetiapine Fumarate [Seroquel] 25 mg PO TID 10/25/15 12/19/15 History Acetaminophen [Mapap] 1,000 mg PO Q6H PRN 05/17/16 Unknown History Height and Weight Patient's height 5 ft 9 in Patient's weight 63.304 kg Weight (Calculated Kilograms) 63.304 BMI 20.6 Vital Signs Temperature 98.2 F 05/19/16 06:46 Pulse Rate 82 05/19/16 06:38 Respiratory Rate 18 05/19/16 06:38 Blood Pressure 146/94 05/19/16 06:38 Pulse Oxygen Saturation 96 05/19/16 06:38 - Anesthetic Plan Anesthesia Type: General ASA Class: 3 -: I have examined this patient and reviewed the medical record. The patient has been assessed prior to anesthesia. Risks and benefits of anesthesia and anesthetic technique options have been discussed and all questions answered. The patient accepts the risk and desires me to proceed with the planned anesthetic.
[2016-05-19] MEDS ORDERED: BACITRACIN 50,000 UNITS VIAL ONE (07:29)
[2016-05-19] MEDS: BUPIVACAINE LIPOSOME/PF 1.3% 20 ML VIAL INF ONE ×2 (07:37→09:02)
[2016-05-19] MEDS ORDERED: LIDOCAINE 100 MG PFS IV ONE (10:00)
[2016-05-19] MEDS ORDERED: GLYCOPYRROLATE 1 MG VIAL IM ONE (10:00)
[2016-05-19] MEDS ORDERED: ETOMIDATE 20 MG/10 ML VIAL IV ONE (10:00)
[2016-05-19] MEDS ORDERED: KETAMINE 50 MG/ML SYRINGE IV ONE (10:00)
[2016-05-19] MEDS ORDERED: VECURONIUM 10 MG VIAL IV ONE (10:00)
[2016-05-19] MEDS ORDERED: SUCCINYLCHOLINE 20 MG/1 ML INJ 10 ML MDV IV ONE (10:00)
[2016-05-19] MEDS ORDERED: FENTANYL 250 MCG/5 ML VIAL IV ONE (10:00)
[2016-05-19] MEDS ORDERED: NEOSTIGMINE 1 MG/1 ML (1:1000) INJ 10 ML MDV IM ONE (10:00)
--- NOTE | 2016-05-19 11:57 | HIMOPRPT ---
DATE OF PROCEDURE: 05/19/16 PREOPERATIVE DIAGNOSIS: Left displaced femoral neck fracture POSTOPERATIVE DIAGNOSIS: Same PROCEDURE: Left hip hemiarthroplasty, cemented Cabling of intraoperative calcar fracture SURGEON: Israel Burden D.O. Assist: Neena Dudley PAC ANESTHESIOLOGIST: Dr Nation ANESTHESIA: GETA ESTIMATED BLOOD LOSS: 250cc COMPLICATIONS: intraop calcar fracture DRAINS: hemovac SPECIMENS: femoral head/neck FINDING: as above osteoporosis DESCRIPTION OF PROCEDURE: Mr Lundberg is an 80-year-old male with significant dementia who fell at his assisted living facility. It was an unwitnessed fall and the patient was found on the floor. History is limited due to his dementia. He was admitted to [facility] with a displaced femoral neck fracture. He was admitted to the hospitalist service and was medically optimized for the operating room. Operative consent was obtained from the patient's daughter who is his power of commercial attorney via the phone as well as his next of kin who is his sister. All risks , benefits, and alternatives to the planned procedure were discussed with them. They did understand these risks proceed with the planned surgery. On the day of his procedure he was identified in the preop holding area and the left lower extremity was marked as the correct operative side. He was taken the operating room and positioned in the lateral decubitus position with the left side up and all bony prominences well padded. He received 1 g IV of Ancef as well as 1 g IV of tranexamic acid prior to incisions being made. An additional 1 g of tranexamic acid was given at the time of wound closure. Left lower extremity was then prepped and draped in sterile fashion. A time-out was performed, again identifying the correct patient and the left side as correct operative side. A 10 cm incision was then made centered over the greater trochanter laterally. The ITB and was then identified and incised in line with the skin incision. Self-retaining Charnley retractor was placed. The abductor musculature was identified. The anterior 1/3 of the abductors were released with electric cautery in modified Hardinge approach fashion. Next the capsule was identified and was excised. At this point a cleanup cut of the patient's fractured femoral neck was made approximately 1 cm above the level of the lesser trochanter. The fractured femoral head was then removed with the power corkscrew. Excess capsule was excised at this point and the labrum was preserved. The pulmonary are and fracture fragments were removed from the acetabulum. The acetabulum and hip joint were thoroughly irrigated with 1 L of sterile saline. Once the acetabulum was adequately exposed trials were placed and a size 50 trial did give the best stable suction fit. Size 50 was chosen for the bipolar head. Next the leg was placed into bag anteriorly. The box osteotome followed by the canal finer were utilized to enter the femoral canal proximally. I then sequentially broached up to a size 8 for the planned accolade 2 femoral stem. Patient had very poor metaphyseal bone and purchase was not adequate. It was also at this point that a nondisplaced fracture through the proximal calcar was noted extending to the level of the lesser trochanter but not below. Two Dall-Miles cables were placed at this point, 1 above and 1 below the lesser trochanter. These were hand tightened. After the nondisplaced calcar fracture was stabilized I then proceeded to prepare the proximal femur for a cemented stem. Reamers followed by broaches were performed and a trial reduction was performed with the size 10 Press-Fit/8 cemented HFX stem trial in place and a -3 head and neck length. This did restore the patient's range of motion, however left him approximately 1 cm short. A repeat trial reduction with the +0 head and neck in place was performed in this did restore the patient's leg lengths. Next the trial components were removed. The canal was thoroughly irrigated and dried in preparation for cementing. A medium cement restrictor was placed. Using standard cementing technique with the cement gun and pressurized her cement was placed into the proximal femur and canal. The final size 8 cemented stem was then placed by hand and held in place and matching the patient's natural anteversion until the cement had dried. Excess cement was removed from the periphery and we were careful to remove any cement from the soft tissues. After the cement had dried a final trial reduction with the +[address] was performed. This did restore the patient's leg length and was stable with full range of motion on the OR table. No impingement was noted. The trial head was then dislocated and the final 50 mm x 28 mm bipolar head was seated. The final implant was reduced and again placed through range of motion and was stable. Leg lengths were restored. Hip was thoroughly irrigated. A Hemovac drain was placed. The abductor muscles were repaired back to the trochanter with a 5. FiberWire suture in Corey-Arthur type fashion. This was reinforced proximally and distally with 0 Ethibond sutures. The vastus lateralis fascia was closed over top of the cables. Exparel injection was placed into the soft tissues. The ITB was closed with a running strata- fix 0 Quill suture. Subcutaneous tissues were closed with 2 O Vicryl interrupted sutures followed by fernando for the skin. An Aqua gel dressing was applied and the patient was placed into an abduction pillow. The patient did tolerate this procedure well and was transferred to the PACU in stable condition. Neena NOVOA was the operative administrative personal assistant during this case. Due to the complex nature of the procedure and under direct supervision, her assistance was required for patient positioning, prepping and draping, soft tissue retraction, manipulation of the extremity, wound closure, application of dressings postoperatively. Implants: [place] Omnifit HFX 127 degree size 8 Cemented stem 50 mm x 28 mm +0 C taper bipolar head Two Dall-Miles cables Medium cement restrictor
[2016-05-19] MEDS ORDERED: Acetaminophen, Intravenous 1,000 MG/100 ML IVBOT IV ONE (12:00)
--- NOTE | 2016-05-19 12:12 | PCM.ORTHBL ---
- Subjective Daily Assessment - Patient: Reports: No new complaints, Still having pain, Other (Pt seen and examined this am pre-op. Remains confused. Dementia and combative.) - Objective / Physical Exam Vital Signs: Temperature: 98.2 F (05/19/16 06:46) HR: 82 (05/19/16 06:38)RR: 18 (05/19/16 06: 38) BP: 146/94 (05/19/16 06:38)Pulse Ox: 96 (05/19/16 06:38) General: Alert, No acute distress. negative: Oriented x3 Musculoskeletal / Extremities: 2 plus Dorsalis Pedis Pulse, Swelling, Edema (L hip), Motor 5/5 throughout, Other (LLE shortened, externally rotated) Neurological: Positive Sensation First Dorsal Web Space, Sensation to light touch intact, Extensor Hallicus Longus Intact, Dorsiflexion Intact, Plantarflexion Intact - Assessment and Plan (1) Displaced fracture of left femoral neck Acute S72.002A - FRACTURE OF UNSP PART OF NECK OF LEFT FEMUR, INIT Present on Admission: Yes Plan: -NPO -scallop dredger to OR today for L hip hemiarthroplasty -spoke with Daughter(POA) prior to case this am
[2016-05-19] MEDS ORDERED: MAGNESIUM HYDROXIDE 30 ML BOTTLE PO PRN (12:16)
[2016-05-19] MEDS ORDERED: Aluminum;Magnesium;Simethicone 30 ML UDC PO PRN (12:16)
[2016-05-19] MEDS ORDERED: BISACODYL 10 MG SUPP PR PRN (12:16)
[2016-05-19] MEDS ORDERED: OXYCODONE HCL 5 MG TABLET PO PRN (12:16)
[2016-05-19] MEDS ORDERED: DIPHENHYDRAMINE 25 MG CAP PO PRN (12:16)
[2016-05-19] MEDS ORDERED: PROMETHAZINE 25 MG/ML VIAL IV PRN (12:16)
--- NOTE | 2016-05-19 12:25 | SC.ANESPOS ---
Post-Anesthesia Note LOC: Lethargic Post-Anesthesia Assessment: Returned to Baseline, Hemodynamically Stable, Hydration Satisfactory, Pain Control Adequate Phase I & II Recovery Complete: Yes Apparent Anesthesia Complication: No - Vital Signs Blood Pressure: 146/94 Pulse: 82 Resp Rate: 18 O2 Sat: 96 Temp: 98.2 F
[2016-05-19] MEDS: TRANEXAMIC ACID 1,000 MG in NS 100 ML IV SCH (12:59)
[2016-05-19] MEDS ORDERED: Pharmacy Discontinue All Previous Acetaminophen Orders SCH (13:00)
[2016-05-19] MEDS ORDERED: NALOXONE 0.4 MG/ML AMPULE IV SCH (13:00)
--- NOTE | 2016-05-19 13:02 | DIRPT ---
CLINICAL DATA: Thad arthroplasty left hip EXAM: LEFT HIP (WITH PELVIS) 1 VIEW PORTABLE COMPARISON: 05/17/2016 FINDINGS: Four views of the left hip submitted. The patient is status post intraoperative repair of left femoral neck fracture. There is a left femoral prosthesis with intra medullary component articulating with [place] femoral head which is anatomic alignment. Two circular shape wires are noted in proximal left femur. Postsurgical changes are noted with periarticular soft tissue air. IMPRESSION: Left hip thad arthroplasty in anatomic alignment. Postsurgical changes are noted periarticular soft tissue air. Electronically Signed By: Demetrius Sherwood M.D. On: 05/19/2016 13:00
--- NOTE | 2016-05-19 13:14 | DIRPT ---
CLINICAL DATA: 80-year-old male status post left watson arthroplasty. Initial encounter. EXAM: LEFT HIP (WITH PELVIS) 1 VIEW PORTABLE COMPARISON: 1025 hours today and earlier. FINDINGS: Portable AP view of the left hip at 1224 hours. Proximal left femoral arthroplasty in in place. Postoperative drain in place. On this AP view the femoral head component appears normally aligned with the acetabulum. No unexpected osseous changes identified. Postoperative changes to the surrounding soft tissues. IMPRESSION: Left femur watson arthroplasty with no adverse features identified. Electronically Signed By: Johnny Walker M.D. On: 05/19/2016 13:11
[2016-05-19] MEDS: TAMSULOSIN HCL 0.4 MG CAP PO SCH (14:09)
[2016-05-19] MEDS: DUTASTERIDE 0.5 MG CAP PO SCH (14:09)
--- NOTE | 2016-05-19 14:49 | GENMEDPROG ---
Chief Complaint: Remains confused this morning. No distress. For surgery today. Notes Reviewed: Yes Events from last night noted and discussed with Clinical Staff Current Medication List: Reviewed Currently: Denies: Cough, Wheezing, JASMINE, SOB, Nausea and Vomiting, Abdominal Pain DVT Prophylaxis: Yes - Physical Examination Vital Signs and I&O: Last Vital Signs Temp 97.0 F L 05/19/16 13:25 Pulse 75 05/19/16 14:25 Resp 20 05/19/16 14:25 BP 168/79 05/19/16 14:25 Pulse Ox 100 05/19/16 14:25 Oxygen Pulse Oxygen Saturation 100 O2 Device Nasal Cannula Oxygen Flow Rate 2.5 Fraction of Inspired Oxygen ( FIO2) Intake & Output 05/16/16 05/17/16 05/18/16 05/19/16 23:59 23:59 23:59 23:59 Intake Total 1361 657 Output Total 200 600 Balance 1161 57 Patient's weight 63.588 kg 63.304 kg General: Alert, No acute distress. negative: Oriented x3 HEENT: Normal, PERRLA, EOMI Neck: Non-tender, Full range of motion, Normal Trachea alignment, Normal inspection. negative: JVD Lymphatics: Normal. negative: Adenopathy Respiratory: Normal - CTA, Diminished Cardiovascular: Regular rate and rhythm, No Gallops,Rubs/Murmurs GI: Normal bowel sounds, Soft, Non tender, No hepatospenomegaly Extremities/Musculoskeletal: Normal pulses, Tenderness (Left lower extremity). negative: Swelling, Edema Skin: Warm,Dry and Intact, No rashes, No breakdown Neurological: Strength at 5/5 X4 ext (Except where limited by pain), Normal tone. negative: Normal speech (Nonverbal for me) Psych/Mental Status: Confused Lab/DI/Studies Reviewed: Laboratory Results - last 24 hr 05/17/16 05/18/16 05/19/16 23:15 00:11 12:32 Hgb 10.7 L Hct 33.4 L Vitamin D 25-Hydroxy 24.8 L Blood Type B POSITIVE Antibody Screen Negative Crossmatch See Detail - Assessment (1) Closed left hip fracture Acute S72.002A - FRACTURE OF UNSP PART OF NECK OF LEFT FEMUR, INIT Qualifiers: Encounter type: initial encounter Fracture healing: F Qualified Code(s): S72.002A - Fracture of unspecified part of neck of left femur, initial encounter for closed fracture Comment/Plan: Stable overnight. For surgery today. Remains moderate risk. Little we can do to modify his risk profile at this point. Recommend proceeding with surgery (2) Anemia Acute D64.9 - ANEMIA, UNSPECIFIED Qualifiers: Anemia type: iron deficiency Iron deficiency anemia type: chronic blood loss Vitamin B12 deficiency anemia type: V Folate deficiency anemia type: F Bone marrow failure anemia type: B Hemolytic anemia type: H Other causes of anemia: O Qualified Code(s): D50.0 - Iron deficiency anemia secondary to blood loss (chronic) Comment/Plan: Monitor counts. Transfuse as needed. (3) Alzheimer's dementia Chronic G30.9 - ALZHEIMER'S DISEASE, UNSPECIFIED; F02.80 - DEMENTIA IN OTH DISEASES CLASSD ELSWHR W/O BEHAVRL DISTURB Comment/Plan: Severe. Unable to participate in his care (4) CAD (coronary artery disease) Chronic I25.10 - ATHSCL HEART DISEASE OF [place] CORONARY ARTERY W/O ANG PCTRS Qualifiers: Coronary Disease-Associated Artery/Lesion type: [place] artery [place] vs. transplanted heart: [place] heart Associated angina: without angina Qualified Code(s): I25.10 - Atherosclerotic heart disease of [place] coronary artery without angina pectoris Comment/Plan: Continue home medications and monitor Case Care Discussed with: Consultants, Nursing Staff, Resource Management
[2016-05-19] MEDS: Cefazolin 2gm/50 ml D5W 2 GM/50 ML RTU IV SCH ×2 (15:27→22:46)
[2016-05-19] MEDS: Aspirin (Orange Enteric Coated) 325 mg tab PO SCH (17:31)
[2016-05-19] MEDS: CALCIUM CARBONATE + VITAMIN D 500 MG TAB PO SCH (17:33)
[2016-05-19] MEDS: SODIUM CHLORIDE 0.9% 3 ML FLUSH FLUSH SCH (17:33)
[2016-05-19] MEDS ORDERED: HALOPERIDOL 5 MG/ML VIAL IM ONE (18:41)
[2016-05-19] MEDS: HALOPERIDOL 5 MG/ML VIAL IM ONE (18:46)
[2016-05-19] MEDS: Acetaminophen, Intravenous 1,000 MG/100 ML IVBOT IV SCH (18:48)
[2016-05-19] MEDS: HYDROmorphone 1 MG INJECTION IV PRN (19:17)
[2016-05-19] MEDS: DIPHENHYDRAMINE 50 MG/ML VIAL IV PRN (19:19)
[2016-05-19] MEDS: DOCUSATE-SENNA CONCENTRATE TAB PO SCH (20:28)
[2016-05-20] MEDS: HYDROmorphone 1 MG INJECTION IV PRN ×3 (00:11→20:49)
[2016-05-20] MEDS: Acetaminophen, Intravenous 1,000 MG/100 ML IVBOT IV SCH ×3 (00:13→11:42)
[2016-05-20] MEDS: NS 1,000 ML IV SCH ×2 (04:58→13:17)
[2016-05-20] MEDS: Cefazolin 2gm/50 ml D5W 2 GM/50 ML RTU IV SCH (04:59)
[2016-05-20] MEDS: ISOSORBIDE MONONITRATE 30 MG TAB PO SCH (04:59)
[2016-05-20] MEDS: DIPHENHYDRAMINE 50 MG/ML VIAL IV PRN ×3 (05:01→20:50)
[2016-05-20] MEDS: SODIUM CHLORIDE 0.9% 3 ML FLUSH FLUSH SCH ×2 (05:48→13:55)
[2016-05-20] MEDS: QUETIAPINE FUMARATE 25 MG TAB PO SCH ×3 (05:48→23:13)
[2016-05-20] MEDS: PANTOPRAZOLE 40 MG TAB PO SCH (05:48)
[2016-05-20] MEDS: TAMSULOSIN HCL 0.4 MG CAP PO SCH (08:25)
[2016-05-20] MEDS: DUTASTERIDE 0.5 MG CAP PO SCH (08:25)
[2016-05-20] MEDS: Aspirin (Orange Enteric Coated) 325 mg tab PO SCH ×2 (08:25→16:43)
[2016-05-20 09:15] LABS: BLOOD UREA NITROGEN 18 MG/DL (9-20); CALCIUM 8.1 MG/DL (8.4-10.2); CALCULATED OSMOLALITY 266 MOs/Kg (270-290); CHLORIDE 105 mEq/L (98-107); GLUCOSE 94 MG/DL (70-99); SODIUM LEVEL 137 mEq/L (137-146)
--- NOTE | 2016-05-20 09:40 | PCM.ORTHBL ---
- Subjective Hospital Day #: 3 Post Op Day: 1 (s/p left hip hemiarthroplasty on 05/19/2016) Daily Assessment - Patient: Reports: No new complaints, Tolerating liquids well , Tolerating Regular Diet, Afebrile. Denies: Awake Alert Oriented x4 (confused but awake on exam), Nausea, Vomiting - Objective / Physical Exam Vital Signs: Temperature: 99.1 F (05/20/16 05:04) HR: 88 (05/20/16 05:04)RR: 18 (05/20/16 05: 04) BP: 148/67 (05/20/16 05:04)Pulse Ox: 97 (05/20/16 05:04) General: Alert, No acute distress. negative: Oriented x3 Musculoskeletal / Extremities: 2 plus Dorsalis Pedis Pulse, Dressing Clean/Dry/ Intact (left hip), Capillary Refill, Muscle Tone Neurological: Dorsiflexion Intact, Plantarflexion Intact Skin: Warm,Dry and Intact, No rashes, No breakdown. negative: Erythema, Warmth Laboratory/Diagnostics Reviewed: 05/20/16 08:00 05/20/16 08:00 - Assessment and Plan (1) Closed left hip fracture Acute S72.002A - FRACTURE OF UNSP PART OF NECK OF LEFT FEMUR, INIT Present on Admission: Yes initial encounter F S72.002A - Fracture of unspecified part of neck of left femur, initial encounter for closed fracture (2) S/P hip hemiarthroplasty Acute Z96.649 - PRESENCE OF UNSPECIFIED ARTIFICIAL HIP JOINT Present on Admission: No Comment/Plan: left hip hemiarthroplasty on 05/19/2016 Plan: Patient is stable. Pain seems to be under control. Will continue pain medication as needed and ASA 325mg BID. Continue TTWB with PT. Will anticipate discharge to SNF for rehab; CM working on it. Stable from ortho standpoint.
--- NOTE | 2016-05-20 09:45 | PCM.DCS92 ---
[id number], INIT Present on Admission: Yes initial encounter F S72.002A - Fracture of unspecified part of neck of left femur, initial encounter for closed fracture (2) S/P hip hemiarthroplasty Acute Z96.649 - PRESENCE OF UNSPECIFIED ARTIFICIAL HIP JOINT Present on Admission: No Discharge Disposition: Snf Facility Discharge Condition: Improved Cognitive Discharge Status: Altered Mental Status Fuctional Discharge Status: Walker Assistance, Fall Risk, Recent lower extremety joint replacement, Post-op Weakness Physician Follow up/Referrals: Arvind Loo MD [Primary Care Provider] - One Week Israel Burden DO [Staff Physician] - Two Weeks Home Medications/ New Prescriptions: New Aspirin (OrangeEnteric Coated) [Ecotrin] 325 mg PO BIDWM #60 tablet Levofloxacin [Levaquin] 750 mg PO DAILY #3 tablet Continue Isosorbide Mononitrate [Isosorbide Mononitrate ER] 30 mg PO DAILY Omeprazole [Prilosec] 20 mg PO BID Dutasteride [Avodart] 0.5 mg PO DAILY Alfuzosin HCl [Alfuzosin HCl ER] 10 mg PO DAILY Quetiapine Fumarate [Seroquel] 25 mg PO TID Acetaminophen [Mapap] 1,000 mg PO Q6H PRN PRN Reason: PAIN/FEVER>100 Oxycodone Immediate Release [Oxycodone Immediate Release (OxyIR)] 5 mg PO Q4H PRN #40 tablet PRN Reason: Pain Diet at Discharge: As Tolerated Activity: Limited (TTWB on LLE) Call Office For: Worsening Symptoms, Wound is Draining Pus, Fever over 101 F, Pain Uncontrolled By Meds Discontinue use of:: Alcohol, All Illegal Substances, All Types of Tobacco Wound Care Surgical Site: Yes Site Description (if applicable): left lateral hip Remove Clear Dressing In How Many Days?: remove aquacel on POD #7 Medical Equipment (Order must still be written on paper): Walker Medication Instructions: Rx on Chart Continue Ice Packs/Ice Machine to Operative Area: Yes Activity as Tolerated: No (TTWB on LLE) Weight Bearing: Touch Down/Toe Touch Abduction Pillow: YES Current Dressing: Aquacel Dressing Care: Keep Wound Clean & Dry, No Tub Baths, Do Not Change Dressing
[2016-05-20] MEDS: LORAZEPAM 2 MG/ML VIAL IV PRN (09:57)
--- NOTE | 2016-05-20 10:15 | GENMEDPROG ---
Chief Complaint: L hip pain, dementia, s/p L hip fracture, ambulatory dysfxn, HCVD, anemia of chr disease, CKD-2 Subjective Note: Patient is 1 day post-op from ORIF L hip fx - very confused Currently: Denies: Cough, Wheezing, JASMINE, SOB, Nausea and Vomiting, Abdominal Pain DVT Prophylaxis: Yes - Physical Examination Vital Signs and I&O: Last Vital Signs Temp 99.1 F 05/20/16 05:04 Pulse 88 05/20/16 05:04 Resp 18 05/20/16 05:04 BP 148/67 05/20/16 05:04 Pulse Ox 97 05/20/16 05:04 Oxygen Pulse Oxygen Saturation 97 O2 Device Room Air Oxygen Flow Rate 2 Fraction of Inspired Oxygen ( FIO2) Intake & Output 05/17/16 05/18/16 05/19/16 05/20/16 23:59 23:59 23:59 23:59 Intake Total 1361 1083 776 Output Total 200 1175 440 Balance 1161 -92 336 Patient's weight 63.588 kg 63.304 kg 63.775 kg General: Alert, No acute distress. negative: Oriented x3 HEENT: PERRLA, EOMI, Anicteric Sclera, Mucous membr. moist/pink Neck: Full range of motion, Normal Trachea alignment, Normal inspection, No Masses palpable, No Thyromegaly palpable, Trachea deviation, Supple Lymphatics: Normal Respiratory: Normal - CTA, Diminished Cardiovascular: Regular rate and rhythm, Normal S1, No Gallops,Rubs/Murmurs, Normal S2, Good Pedal Pulses, LE Edema, Irregular GI: Normal bowel sounds, Soft, Non tender, No masses Extremities/Musculoskeletal: Normal pulses, Strength (normal), DJD, FROM. negative: Edema Skin: Warm,Dry and Intact, No rashes, No breakdown. negative: Erythema, Warmth Neurological: Normal speech, Strength at 5/5 X4 ext, Normal tone, Cranial nerves 3-12 NL Psych/Mental Status: Appropriate, Normal Affect, Cooperative, Confused, Disoriented Lab/DI/Studies Reviewed: Laboratory Tests 05/20/16 05/20/16 08:00 08:00 WBC 12.6 H Hgb 9.9 L Hct 29.9 L Plt Count 151 Sodium 137 Potassium 4.0 Chloride 105 Carbon Dioxide 25 Anion Gap 11 BUN 18 Creatinine 0.80 Estimated GFR (MDRD) > 60 Glucose 94 Calculated Osmolality 266 L Calcium 8.1 L - Assessment (1) Closed left hip fracture Acute S72.002A - FRACTURE OF UNSP PART OF NECK OF LEFT FEMUR, INIT Qualifiers: Encounter type: initial encounter Fracture healing: F Qualified Code(s): S72.002A - Fracture of unspecified part of neck of left femur, initial encounter for closed fracture Comment/Plan: Stable overnight. S/P surgery yesterday. Remains moderate risk. will begin physical therapy as soon as possible. Patient trying to get out of bed without assistance. (2) Left hip pain Acute M25.552 - PAIN IN LEFT HIP Comment/Plan: PRN IV morphine. (3) Anemia Acute D64.9 - ANEMIA, UNSPECIFIED Qualifiers: Anemia type: iron deficiency Iron deficiency anemia type: chronic blood loss Vitamin B12 deficiency anemia type: V Folate deficiency anemia type: F Bone marrow failure anemia type: B Hemolytic anemia type: H Other causes of anemia: O Qualified Code(s): D50.0 - Iron deficiency anemia secondary to blood loss (chronic) Comment/Plan: Monitor counts. Transfuse as needed. (4) Alzheimer's dementia Chronic G30.9 - ALZHEIMER'S DISEASE, UNSPECIFIED; F02.80 - DEMENTIA IN OTH DISEASES CLASSD ELSWHR W/O BEHAVRL DISTURB Comment/Plan: Severe. Unable to participate in his care (5) Dehydration Acute E86.0 - DEHYDRATION Comment/Plan: IVF (6) Pulmonary nodule Acute R91.1 - SOLITARY PULMONARY NODULE Comment/Plan: Found on x-ray. Patient's sister informed. CXR findings: IMPRESSION: 1. No radiographic evidence of acute cardiopulmonary disease. 2. Atherosclerosis. 3. Nodular density projecting over the right mid lung new compared to prior examination 09/02/2014. Further evaluation with nonemergent chest CT is recommended in the near future to exclude neoplasm Plan: Outpatient follow up with primary care physician for further evaluation.
[2016-05-20] MEDS: VITAMINS, MULTIPLE CAP PO SCH (11:36)
[2016-05-20] MEDS: CALCIUM CARBONATE + VITAMIN D 500 MG TAB PO SCH ×2 (11:36→16:43)
[2016-05-20] MEDS: ACETAMINOPHEN 325 MG SUPP PR PRN (22:43)
[2016-05-20] MEDS: DOCUSATE-SENNA CONCENTRATE TAB PO SCH (23:13)
[2016-05-21] MEDS: HYDROmorphone 1 MG INJECTION IV PRN (01:58)
[2016-05-21] MEDS: NS 1,000 ML IV SCH ×2 (01:58→18:32)
[2016-05-21] MEDS: LORAZEPAM 2 MG/ML VIAL IV PRN ×4 (01:59→22:23)
[2016-05-21] MEDS: ISOSORBIDE MONONITRATE 30 MG TAB PO SCH (04:58)
[2016-05-21] MEDS: PANTOPRAZOLE 40 MG TAB PO SCH (04:58)
[2016-05-21] MEDS: SODIUM CHLORIDE 0.9% 3 ML FLUSH FLUSH SCH ×2 (04:58→17:20)
[2016-05-21] MEDS: QUETIAPINE FUMARATE 25 MG TAB PO SCH ×3 (04:58→22:29)
--- NOTE | 2016-05-21 08:11 | PCM.ORTHBL ---
- Subjective Hospital Day #: 4 Post Op Day: 2 (s/p left hip hemiarthroplasty on 05/19/2016) Daily Assessment - Patient: Reports: Tolerating liquids well, Tolerating Regular Diet. Denies: Awake Alert Oriented x4, Shortness of breath, Nausea, Vomiting - Objective / Physical Exam Vital Signs: Temperature: 100.3 F (05/21/16 05:40) HR: 89 (05/21/16 05:40)RR: 20 (05/21/16 05 :40) BP: 184/85 (05/21/16 05:40)Pulse Ox: 94 (05/21/16 05:40) General: No acute distress. negative: Alert, Oriented x3, Cooperative Musculoskeletal / Extremities: 2 plus Dorsalis Pedis Pulse, Dressing Clean/Dry/ Intact (left hip), Capillary Refill, Muscle Tone Neurological: Dorsiflexion Intact, Plantarflexion Intact Skin: Warm,Dry and Intact, No rashes, No breakdown Laboratory/Diagnostics Reviewed: 05/21/16 06:20 05/20/16 08:00 - Assessment and Plan (1) Closed left hip fracture Acute S72.002A - FRACTURE OF UNSP PART OF NECK OF LEFT FEMUR, INIT Present on Admission: Yes initial encounter F S72.002A - Fracture of unspecified part of neck of left femur, initial encounter for closed fracture (2) S/P hip hemiarthroplasty Acute Z96.649 - PRESENCE OF UNSPECIFIED ARTIFICIAL HIP JOINT Present on Admission: No Plan: Patient is stable. Continue pain management and DVT prophylaxis. Continue TTWB with PT. Urine cultures and CXR were ordered because his WBC and temp were elevated. Blood cultures were ordered per medicine. Will need discharge to rehab when ready. <Neena Dudley - Last Filed: 05/21/16 11:42> - Objective / Physical Exam Vital Signs: Temperature: 99.8 F (05/21/16 09:40) HR: 118 (05/21/16 09:40)RR: 20 (05/21/16 09 :40) BP: 150/98 (05/21/16 09:40)Pulse Ox: 100 (05/21/16 09:40) - Assessment and Plan (1) Displaced fracture of left femoral neck Acute S72.002A - FRACTURE OF UNSP PART OF NECK OF LEFT FEMUR, INIT Present on Admission: Yes <Israel Burden - Last Filed: 05/21/16 12:54>
[2016-05-21] MEDS: DIPHENHYDRAMINE 50 MG/ML VIAL IV PRN ×2 (09:50→16:41)
[2016-05-21] MEDS: Aspirin (Orange Enteric Coated) 325 mg tab PO SCH ×2 (09:52→17:19)
[2016-05-21] MEDS: TAMSULOSIN HCL 0.4 MG CAP PO SCH (09:52)
[2016-05-21] MEDS: DUTASTERIDE 0.5 MG CAP PO SCH (09:52)
[2016-05-21] MEDS: CALCIUM CARBONATE + VITAMIN D 500 MG TAB PO SCH ×2 (10:38→17:19)
[2016-05-21] MEDS: VITAMINS, MULTIPLE CAP PO SCH (10:38)
--- NOTE | 2016-05-21 10:55 | GENMEDPROG ---
Currently: Denies: Cough, Wheezing, JASMINE, SOB, Nausea and Vomiting, Abdominal Pain DVT Prophylaxis: Yes - Physical Examination Vital Signs and I&O: Last Vital Signs Temp 99.8 F 05/21/16 09:40 Pulse 118 05/21/16 09:40 Resp 20 05/21/16 09:40 BP 150/98 05/21/16 09:40 Pulse Ox 100 05/21/16 09:40 Oxygen Pulse Oxygen Saturation 100 O2 Device Room Air Oxygen Flow Rate 2 Fraction of Inspired Oxygen ( FIO2) Intake & Output 05/18/16 05/19/16 05/20/16 05/21/16 23:59 23:59 23:59 23:59 Intake Total 1361 1083 2307 1020 Output Total 200 1175 3305 1250 Balance 1161 -92 -998 -230 Patient's weight 63.588 kg 63.304 kg 63.775 kg 63.56 kg General: No acute distress. negative: Alert, Oriented x3, Cooperative Skin: Warm,Dry and Intact, No rashes, No breakdown Lab/DI/Studies Reviewed: CXR: IMPRESSION: 1. Pneumonia involving the right lung base, likely the right middle lobe and right lower lobe. 2. Minimal linear atelectasis at the left lung base. Electronically Signed By: Arvind Snow M.D. On: 05/21/2016 12:38 - Assessment (1) Aspiration pneumonia Acute J69.0 - PNEUMONITIS DUE TO INHALATION OF FOOD AND VOMIT Qualifiers: Aspiration pneumonia type: due to gastric secretions Laterality: right Lung location: lower lobe of lung Qualified Code(s): J69.0 - Pneumonitis due to inhalation of food and vomit Comment/Plan: Obtain blood cultures, begin IV Rocephin and Levaquin. (2) Closed left hip fracture Acute S72.002A - FRACTURE OF UNSP PART OF NECK OF LEFT FEMUR, INIT Qualifiers: Encounter type: initial encounter Fracture healing: F Qualified Code(s): S72.002A - Fracture of unspecified part of neck of left femur, initial encounter for closed fracture Comment/Plan: Stable overnight. S/P surgery yesterday. Remains moderate risk. will begin physical therapy as soon as possible. Patient trying to get out of bed without assistance. (3) Left hip pain Acute M25.552 - PAIN IN LEFT HIP Comment/Plan: PRN IV morphine. (4) Anemia Acute D64.9 - ANEMIA, UNSPECIFIED Qualifiers: Anemia type: iron deficiency Iron deficiency anemia type: chronic blood loss Vitamin B12 deficiency anemia type: V Folate deficiency anemia type: F Bone marrow failure anemia type: B Hemolytic anemia type: H Other causes of anemia: O Qualified Code(s): D50.0 - Iron deficiency anemia secondary to blood loss (chronic) Comment/Plan: Monitor counts. Transfuse as needed. (5) Alzheimer's dementia Chronic G30.9 - ALZHEIMER'S DISEASE, UNSPECIFIED; F02.80 - DEMENTIA IN OTH DISEASES CLASSD ELSWHR W/O BEHAVRL DISTURB Comment/Plan: Severe. Unable to participate in his care (6) Dehydration Acute E86.0 - DEHYDRATION Comment/Plan: IVF (7) Pulmonary nodule Acute R91.1 - SOLITARY PULMONARY NODULE Comment/Plan: Found on x-ray. Patient's sister informed. CXR findings: IMPRESSION: 1. No radiographic evidence of acute cardiopulmonary disease. 2. Atherosclerosis. 3. Nodular density projecting over the right mid lung new compared to prior examination 09/02/2014. Further evaluation with nonemergent chest CT is recommended in the near future to exclude neoplasm Plan: Outpatient follow up with primary care physician for further evaluation.
--- NOTE | 2016-05-21 12:41 | DIRPT ---
CLINICAL DATA: 80-year-old who underwent left hip hemiarthroplasty 2 days ago for a left femoral neck fracture. Postoperative fever. EXAM: PORTABLE CHEST 1 VIEW COMPARISON: Preoperative chest x-ray 05/17/2016 and earlier. FINDINGS: Interval development of airspace opacities in the right lung base, likely in both the right middle lobe and right lower lobe. Minimal linear atelectasis at the left lung base. Lungs otherwise clear. Pulmonary vascularity normal. No pneumothorax. Cardiac silhouette upper normal in size for AP portable technique. IMPRESSION: 1. Pneumonia involving the right lung base, likely the right middle lobe and right lower lobe. 2. Minimal linear atelectasis at the left lung base. Electronically Signed By: Arvind Snow M.D. On: 05/21/2016 12:38
[2016-05-21] MEDS: CEFTRIAXONE 1 GM in D5W 100 ML IV SCH (14:12)
[2016-05-21] MEDS: Levofloxacin 750 mg/150 ml D5W 750 MG/150 ML RTU IV SCH (15:13)
[2016-05-21] MEDS: DOCUSATE-SENNA CONCENTRATE TAB PO SCH (22:23)
[2016-05-21] MEDS: ACETAMINOPHEN 325 MG SUPP PR PRN (22:53)
[2016-05-22] MEDS: NS 1,000 ML IV SCH ×3 (02:43→23:00)
[2016-05-22] MEDS: hydrALAZINE 20 MG/ML VIAL IV PRN (05:33)
[2016-05-22] MEDS: ISOSORBIDE MONONITRATE 30 MG TAB PO SCH (05:56)
[2016-05-22] MEDS: SODIUM CHLORIDE 0.9% 3 ML FLUSH FLUSH SCH ×2 (05:56→17:13)
[2016-05-22] MEDS: PANTOPRAZOLE 40 MG TAB PO SCH (05:56)
[2016-05-22] MEDS: QUETIAPINE FUMARATE 25 MG TAB PO SCH ×3 (05:56→20:04)
[2016-05-22] MEDS: HYDROmorphone 1 MG INJECTION IV PRN (05:57)
[2016-05-22 07:00] LABS: BLOOD UREA NITROGEN 18 MG/DL (9-20); CALCIUM 8.3 MG/DL (8.4-10.2); CALCULATED OSMOLALITY 265 MOs/Kg (270-290); CHLORIDE 104 mEq/L (98-107); GLUCOSE 87 MG/DL (70-99); SODIUM LEVEL 137 mEq/L (137-146)
[2016-05-22 07:12] LABS: AUTOMATED BASOPHIL 0.2 % (0-2); AUTOMATED EOSINOPHIL 0.3 % (0-5); AUTOMATED LYMPH 11.3 % (17-44); AUTOMATED MONOCYTE 9.5 % (3-10); AUTOMATED NEUTROPHIL 78.7 % (45-76); MPV 8.8 fL (7.4-10.4)
[2016-05-22] MEDS: Aspirin (Orange Enteric Coated) 325 mg tab PO SCH ×2 (09:30→17:22)
[2016-05-22] MEDS: TAMSULOSIN HCL 0.4 MG CAP PO SCH (09:31)
[2016-05-22] MEDS: DUTASTERIDE 0.5 MG CAP PO SCH (09:31)
--- NOTE | 2016-05-22 10:45 | PCM.ORTHBL ---
- Subjective Chief Complaint: CXR from yesterday demonstrated right lower lobe pneumonia. Per medicine, he was started on IV rocephin and levaquin. Blood cultures pending. Limited working with PT. Hospital Day #: 5 Post Op Day: 3 (s/p left hip hemiarthroplasty on 05/19/2016) Daily Assessment - Patient: Reports: No new complaints, Tolerating liquids well , Tolerating Regular Diet, Fever (very low grade). Denies: Shortness of breath , Nausea, Vomiting - Objective / Physical Exam Vital Signs: Temperature: 99.2 F (05/22/16 05:15) HR: 90 (05/22/16 09:00)RR: 20 (05/22/16 09: 00) BP: 136/75 (05/22/16 09:00)Pulse Ox: 99 (05/22/16 09:00) General: No acute distress (severely demented). negative: Alert, Oriented x3 Musculoskeletal / Extremities: 2 plus Dorsalis Pedis Pulse, Dressing Clean/Dry/ Intact (left lateral hip), Capillary Refill, Muscle Tone, Motor 5/5 throughout Neurological: Dorsiflexion Intact, Plantarflexion Intact Skin: Warm,Dry and Intact, No rashes, No breakdown. negative: Erythema, Warmth Laboratory/Diagnostics Reviewed: 05/22/16 06:05 05/22/16 06:05 Blood cultures: preliminary negative at 24-48 hours. - Assessment and Plan (1) Closed left hip fracture Acute S72.002A - FRACTURE OF UNSP PART OF NECK OF LEFT FEMUR, INIT Present on Admission: Yes initial encounter F S72.002A - Fracture of unspecified part of neck of left femur, initial encounter for closed fracture (2) S/P hip hemiarthroplasty Acute Z96.649 - PRESENCE OF UNSPECIFIED ARTIFICIAL HIP JOINT Present on Admission: No Plan: Hip fracture is stable. Medicine now managing new pneumonia. Continue TTWB status with PT. Continue pain management as needed and DVT prophylaxis with SCDs , TEDs and ASA 325mg BID. Will continue to follow.
[2016-05-22] MEDS: VITAMINS, MULTIPLE CAP PO SCH (12:34)
[2016-05-22] MEDS: CALCIUM CARBONATE + VITAMIN D 500 MG TAB PO SCH ×2 (12:34→17:22)
[2016-05-22] MEDS: CEFTRIAXONE 1 GM in D5W 100 ML IV SCH (15:08)
--- NOTE | 2016-05-22 15:46 | GENMEDPROG ---
Chief Complaint: aspiration pneumonia, s/p hip fracture, still very ill, demented Subjective Note: very drowsy, only had one dose of xanax at 10 pm last night. Currently: Denies: Cough, Wheezing, JASMINE, SOB, Nausea and Vomiting, Abdominal Pain DVT Prophylaxis: Yes - Physical Examination Vital Signs and I&O: Last Vital Signs Temp 99.1 F 05/22/16 14:00 Pulse 95 05/22/16 14:00 Resp 22 05/22/16 14:00 BP 166/78 05/22/16 14:00 Pulse Ox 100 05/22/16 14:00 Oxygen Pulse Oxygen Saturation 100 O2 Device Nasal Cannula Oxygen Flow Rate 1 Fraction of Inspired Oxygen ( FIO2) Intake & Output 05/19/16 05/20/16 05/21/16 05/22/16 23:59 23:59 23:59 23:59 Intake Total 1083 2307 1555 1324 Output Total 1175 3305 3000 2500 Balance -92 -998 -1445 -1176 Patient's weight 63.304 kg 63.775 kg 63.56 kg 61.433 kg General: No acute distress (severely demented). negative: Alert, Oriented x3 HEENT: PERRLA, EOMI, Anicteric Sclera, Mucous membr. moist/pink Neck: Normal Trachea alignment, Normal inspection, No Masses palpable Lymphatics: Normal Respiratory: Diminished, Rales, Rhonchi Cardiovascular: Regular rate and rhythm, Normal S1, Normal S2, Good Pedal Pulses. negative: LE Edema GI: Normal bowel sounds, Soft, Non tender, No masses Skin: Warm,Dry and Intact, No rashes, No breakdown. negative: Erythema, Warmth Neurological: Normal tone, Drowsy, Somnolent, Lethargy Psych/Mental Status: Confused, Drowsy, Somnolent, Lethargic Lab/DI/Studies Reviewed: Laboratory Tests 05/21/16 05/22/16 05/22/16 06:20 06:05 06:05 WBC 16.5 H 15.5 H Hgb 10.3 L 9.9 L Hct 32.3 L 30.0 L Plt Count 155 215 Neut % (Auto) 78.7 H Lymph % (Auto) 11.3 L [place] % (Auto) 9.5 Sodium 137 Potassium 4.0 Chloride 104 Carbon Dioxide 24 Anion Gap 13 BUN 18 Creatinine 0.70 Estimated GFR (MDRD) > 60 Glucose 87 Calculated Osmolality 265 L Calcium 8.3 L Magnesium 1.70 - Assessment (1) Aspiration pneumonia Acute J69.0 - PNEUMONITIS DUE TO INHALATION OF FOOD AND VOMIT Qualifiers: Aspiration pneumonia type: due to gastric secretions Laterality: right Lung location: lower lobe of lung Qualified Code(s): J69.0 - Pneumonitis due to inhalation of food and vomit Comment/Plan: Follow-up blood cultures, continue IV Rocephin and Levaquin. (2) Closed left hip fracture Acute S72.002A - FRACTURE OF UNSP PART OF NECK OF LEFT FEMUR, INIT Qualifiers: Encounter type: initial encounter Fracture healing: F Qualified Code(s): S72.002A - Fracture of unspecified part of neck of left femur, initial encounter for closed fracture Comment/Plan: Stable overnight. S/P surgery 05/19/16. Remains moderate risk. will begin physical therapy as soon as possible. Patient obtunded and sleeping most of the day, not eating or drinking. (3) Left hip pain Acute M25.552 - PAIN IN LEFT HIP Comment/Plan: PRN IV morphine. (4) Anemia Acute D64.9 - ANEMIA, UNSPECIFIED Qualifiers: Anemia type: iron deficiency Iron deficiency anemia type: chronic blood loss Vitamin B12 deficiency anemia type: V Folate deficiency anemia type: F Bone marrow failure anemia type: B Hemolytic anemia type: H Other causes of anemia: O Qualified Code(s): D50.0 - Iron deficiency anemia secondary to blood loss (chronic) Comment/Plan: Monitor counts. Transfuse as needed. (5) Alzheimer's dementia Chronic G30.9 - ALZHEIMER'S DISEASE, UNSPECIFIED; F02.80 - DEMENTIA IN OTH DISEASES CLASSD ELSWHR W/O BEHAVRL DISTURB Comment/Plan: Severe. Unable to participate in his care (6) Dehydration Acute E86.0 - DEHYDRATION Comment/Plan: IVF (7) Pulmonary nodule Acute R91.1 - SOLITARY PULMONARY NODULE Comment/Plan: Found on x-ray. Patient's sister informed. CXR findings: IMPRESSION: 1. No radiographic evidence of acute cardiopulmonary disease. 2. Atherosclerosis. 3. Nodular density projecting over the right mid lung new compared to prior examination 09/02/2014. Further evaluation with nonemergent chest CT is recommended in the near future to exclude neoplasm Plan: Outpatient follow up with primary care physician for further evaluation. Case Care Discussed with: Patient, Nursing Staff, Resource Management Education/Counseling Given To: Patient Education/Counseling Given Regarding: Diagnosis, Treatment, Prognosis Critical Care: No Couseling Time (>50% in counseling/coordination): No Code: 10147 (12+)
[2016-05-22] MEDS: Levofloxacin 750 mg/150 ml D5W 750 MG/150 ML RTU IV SCH (17:11)
[2016-05-22] MEDS: DOCUSATE-SENNA CONCENTRATE TAB PO SCH (20:04)
[2016-05-23] MEDS: NS 1,000 ML IV SCH ×3 (00:23→13:44)
[2016-05-23] MEDS: hydrALAZINE 20 MG/ML VIAL IV PRN (01:10)
[2016-05-23] MEDS: LORAZEPAM 2 MG/ML VIAL IV PRN (01:59)
[2016-05-23] MEDS: SODIUM CHLORIDE 0.9% 3 ML FLUSH FLUSH SCH ×2 (06:40→16:43)
[2016-05-23] MEDS: QUETIAPINE FUMARATE 25 MG TAB PO SCH ×3 (06:41→21:18)
[2016-05-23] MEDS: PANTOPRAZOLE 40 MG TAB PO SCH (06:45)
[2016-05-23] MEDS: ISOSORBIDE MONONITRATE 30 MG TAB PO SCH (06:45)
[2016-05-23] MEDS: Aspirin (Orange Enteric Coated) 325 mg tab PO SCH ×2 (08:03→16:49)
--- NOTE | 2016-05-23 08:15 | PCM.ORTHBL ---
[id number] demented Hospital Day #: 6 Post Op Day: 4 (s/p left hip hemiarthroplasty on 05/19/2016) Daily Assessment - Patient: Reports: Fever (low grade). Denies: Shortness of breath, Nausea, Vomiting - Objective / Physical Exam Vital Signs: Temperature: 99.3 F (05/22/16 22:00) HR: 96 (05/23/16 06:00)RR: 18 (05/23/16 06: 00) BP: 148/76 (05/23/16 06:00)Pulse Ox: 96 (05/23/16 06:00) General: No acute distress. negative: Alert, Oriented x3 Musculoskeletal / Extremities: 2 plus Dorsalis Pedis Pulse, Dressing Clean/Dry/ Intact (left lateral hip), Capillary Refill, Muscle Tone, Motor 5/5 throughout Neurological: Dorsiflexion Intact, Plantarflexion Intact Skin: Warm,Dry and Intact, No rashes, No breakdown. negative: Rash, Erythema - Assessment and Plan (1) Closed left hip fracture Acute S72.002A - FRACTURE OF UNSP PART OF NECK OF LEFT FEMUR, INIT Present on Admission: Yes initial encounter F S72.002A - Fracture of unspecified part of neck of left femur, initial encounter for closed fracture (2) S/P hip hemiarthroplasty Acute Z96.649 - PRESENCE OF UNSPECIFIED ARTIFICIAL HIP JOINT Present on Admission: No Plan: Patient continues to be demented. He's being treated for pneumonia. Continue pain management as needed. Also continue ASA 325mg BID and TEDS/SCDs for DVT prophylaxis. Continue TTWB status. Discharge planning is looking for bed in SNF.
[2016-05-23] MEDS: TAMSULOSIN HCL 0.4 MG CAP PO SCH (08:27)
[2016-05-23] MEDS: DUTASTERIDE 0.5 MG CAP PO SCH (08:28)
[2016-05-23] MEDS: CALCIUM CARBONATE + VITAMIN D 500 MG TAB PO SCH ×2 (11:20→16:49)
[2016-05-23] MEDS: VITAMINS, MULTIPLE CAP PO SCH (11:20)
[2016-05-23] MEDS: CEFTRIAXONE 1 GM in D5W 100 ML IV SCH (13:44)
[2016-05-23] MEDS: Levofloxacin 750 mg/150 ml D5W 750 MG/150 ML RTU IV SCH (16:43)
--- NOTE | 2016-05-23 19:23 | GENMEDPROG ---
Currently: Denies: Cough, Wheezing, JASMINE, SOB, Nausea and Vomiting, Abdominal Pain DVT Prophylaxis: Yes - Physical Examination Vital Signs and I&O: Last Vital Signs Temp 99.3 F 05/22/16 22:00 Pulse 96 05/23/16 13:58 Resp 18 05/23/16 06:00 BP 158/78 05/23/16 13:58 Pulse Ox 96 05/23/16 06:00 Oxygen Pulse Oxygen Saturation 96 O2 Device Room Air Oxygen Flow Rate 1 Fraction of Inspired Oxygen ( FIO2) Intake & Output 05/20/16 05/21/16 05/22/16 05/23/16 23:59 23:59 23:59 23:59 Intake Total 230 1555 1934 1952 Output Total 3305 3000 2500 Balance -998 -1445 -366 1952 Patient's weight 63.775 kg 63.56 kg 61.433 kg 61.49 kg General: No acute distress. negative: Alert, Oriented x3 Skin: Warm,Dry and Intact, No rashes, No breakdown. negative: Rash, Erythema - Assessment (1) Aspiration pneumonia Acute J69.0 - PNEUMONITIS DUE TO INHALATION OF FOOD AND VOMIT Qualifiers: Aspiration pneumonia type: due to gastric secretions Laterality: right Lung location: lower lobe of lung Qualified Code(s): J69.0 - Pneumonitis due to inhalation of food and vomit Comment/Plan: Follow-up blood cultures, continue IV Rocephin and Levaquin. (2) Closed left hip fracture Acute S72.002A - FRACTURE OF UNSP PART OF NECK OF LEFT FEMUR, INIT Qualifiers: Encounter type: initial encounter Fracture healing: F Qualified Code(s): S72.002A - Fracture of unspecified part of neck of left femur, initial encounter for closed fracture Comment/Plan: Stable overnight. S/P surgery 05/19/16. Remains moderate risk. will begin physical therapy as soon as possible. Patient obtunded and sleeping most of the day, not eating or drinking. (3) Left hip pain Acute M25.552 - PAIN IN LEFT HIP Comment/Plan: PRN IV morphine. (4) Anemia Acute D64.9 - ANEMIA, UNSPECIFIED Qualifiers: Anemia type: iron deficiency Iron deficiency anemia type: chronic blood loss Vitamin B12 deficiency anemia type: V Folate deficiency anemia type: F Bone marrow failure anemia type: B Hemolytic anemia type: H Other causes of anemia: O Qualified Code(s): D50.0 - Iron deficiency anemia secondary to blood loss (chronic) Comment/Plan: Monitor counts. Transfuse as needed. (5) Alzheimer's dementia Chronic G30.9 - ALZHEIMER'S DISEASE, UNSPECIFIED; F02.80 - DEMENTIA IN OTH DISEASES CLASSD ELSWHR W/O BEHAVRL DISTURB Comment/Plan: Severe. Unable to participate in his care (6) Dehydration Acute E86.0 - DEHYDRATION Comment/Plan: IVF (7) Pulmonary nodule Acute R91.1 - SOLITARY PULMONARY NODULE Comment/Plan: Found on x-ray. Patient's sister informed. CXR findings: IMPRESSION: 1. No radiographic evidence of acute cardiopulmonary disease. 2. Atherosclerosis. 3. Nodular density projecting over the right mid lung new compared to prior examination 09/02/2014. Further evaluation with nonemergent chest CT is recommended in the near future to exclude neoplasm Plan: Outpatient follow up with primary care physician for further evaluation.
[2016-05-23] MEDS: DOCUSATE-SENNA CONCENTRATE TAB PO SCH (21:18)
[2016-05-24] MEDS: HYDROmorphone 1 MG INJECTION IV PRN ×3 (01:47→22:55)
[2016-05-24] MEDS: NS 1,000 ML IV SCH ×2 (03:28→15:55)
[2016-05-24] MEDS: ISOSORBIDE MONONITRATE 30 MG TAB PO SCH ×2 (04:45→04:47)
[2016-05-24] MEDS: QUETIAPINE FUMARATE 25 MG TAB PO SCH ×4 (04:45→22:43)
[2016-05-24] MEDS: PANTOPRAZOLE 40 MG TAB PO SCH ×2 (04:45→04:47)
[2016-05-24] MEDS: SODIUM CHLORIDE 0.9% 3 ML FLUSH FLUSH SCH ×2 (04:47→17:41)
[2016-05-24] MEDS: TAMSULOSIN HCL 0.4 MG CAP PO SCH (09:56)
[2016-05-24] MEDS: DUTASTERIDE 0.5 MG CAP PO SCH (09:56)
[2016-05-24] MEDS: Aspirin (Orange Enteric Coated) 325 mg tab PO SCH (09:56)
--- NOTE | 2016-05-24 10:46 | GENMEDPROG ---
Chief Complaint: aspiration pneumonia, s/p repair hip fx, dementia Subjective Note: confused, but alert & more responsive Currently: Denies: Cough, Wheezing, JASMINE, SOB, Nausea and Vomiting, Abdominal Pain DVT Prophylaxis: Yes - Physical Examination Vital Signs and I&O: Last Vital Signs Temp 98.8 F 05/24/16 05:00 Pulse 73 05/24/16 05:00 Resp 20 05/24/16 05:00 BP 166/69 05/24/16 05:00 Pulse Ox 95 05/24/16 05:00 Oxygen Pulse Oxygen Saturation 95 O2 Device Room Air Oxygen Flow Rate 1 Fraction of Inspired Oxygen ( FIO2) Intake & Output 05/21/16 05/22/16 05/23/16 05/24/16 23:59 23:59 23:59 23:59 Intake Total 1555 1934 2503 1148 Output Total 3000 2500 Balance -1445 -566 2503 1148 Patient's weight 63.56 kg 61.433 kg 61.49 kg 59.477 kg General: Cooperative, No acute distress, Weakness. negative: Alert, Oriented x3 HEENT: PERRLA, EOMI, Anicteric Sclera, Mucous membr. moist/pink, Normocephalic Neck: Full range of motion, Normal Trachea alignment, Normal inspection, No Masses palpable Lymphatics: Normal Respiratory: Normal - CTA, Diminished Cardiovascular: Regular rate and rhythm, Normal S1, Normal S2, Good Pedal Pulses , Chest Non Tender. negative: LE Edema GI: Normal bowel sounds, Soft, Non tender, No masses Extremities/Musculoskeletal: Normal pulses, DJD. negative: Edema Skin: Warm,Dry and Intact, No rashes, No breakdown. negative: Rash, Erythema Neurological: Normal speech, Normal tone, Cranial nerves 3-12 NL Psych/Mental Status: Cooperative, Anxious, Confabulating, Confused, Disoriented - Assessment (1) Aspiration pneumonia Acute J69.0 - PNEUMONITIS DUE TO INHALATION OF FOOD AND VOMIT Qualifiers: Aspiration pneumonia type: due to gastric secretions Laterality: right Lung location: lower lobe of lung Qualified Code(s): J69.0 - Pneumonitis due to inhalation of food and vomit Comment/Plan: Urine, blood cultures remain negative, continue IV Rocephin and stop Levaquin (today is day 4). Anticipate discharge to SNF tomorrow, con continue with either IV or IM Rocephin for 3-4 more doses. (2) Closed left hip fracture Acute S72.002A - FRACTURE OF UNSP PART OF NECK OF LEFT FEMUR, INIT Qualifiers: Encounter type: initial encounter Fracture healing: F Qualified Code(s): S72.002A - Fracture of unspecified part of neck of left femur, initial encounter for closed fracture Comment/Plan: Stable overnight. S/P surgery 05/19/16. Remains moderate risk. Worked with physical therapy today. Patient alert, beginning to participate with therapy, is more responsive and eating better now. (3) Left hip pain Acute M25.552 - PAIN IN LEFT HIP Comment/Plan: PRN IV morphine. (4) Anemia Acute D64.9 - ANEMIA, UNSPECIFIED Qualifiers: Anemia type: iron deficiency Iron deficiency anemia type: chronic blood loss Vitamin B12 deficiency anemia type: V Folate deficiency anemia type: F Bone marrow failure anemia type: B Hemolytic anemia type: H Other causes of anemia: O Qualified Code(s): D50.0 - Iron deficiency anemia secondary to blood loss (chronic) Comment/Plan: Monitor counts. Transfuse as needed. (5) Alzheimer's dementia Chronic G30.9 - ALZHEIMER'S DISEASE, UNSPECIFIED; F02.80 - DEMENTIA IN OTH DISEASES CLASSD ELSWHR W/O BEHAVRL DISTURB Comment/Plan: Severe. Cooperating in his care (6) Dehydration Acute E86.0 - DEHYDRATION Comment/Plan: IVF (7) Pulmonary nodule Acute R91.1 - SOLITARY PULMONARY NODULE Comment/Plan: Found on x-ray. Patient's sister informed. CXR findings: IMPRESSION: 1. No radiographic evidence of acute cardiopulmonary disease. 2. Atherosclerosis. 3. Nodular density projecting over the right mid lung new compared to prior examination 09/02/2014. Further evaluation with nonemergent chest CT is recommended in the near future to exclude neoplasm Plan: Outpatient follow up with primary care physician for further evaluation.
--- NOTE | 2016-05-24 11:38 | PCM.ORTHBL ---
- Subjective Hospital Day #: 7 Post Op Day: 5 (s/p left hip hemiarthroplasty on 05/19/2016) Daily Assessment - Patient: Reports: No new complaints (still very confused), Afebrile. Denies: Tolerating liquids well, Tolerating Regular Diet, Shortness of breath, Nausea, Vomiting - Objective / Physical Exam Vital Signs: Temperature: 98.8 F (05/24/16 05:00) HR: 73 (05/24/16 05:00)RR: 20 (05/24/16 05: 00) BP: 166/69 (05/24/16 05:00)Pulse Ox: 95 (05/24/16 05:00) General: negative: Alert, Oriented x3 Musculoskeletal / Extremities: 2 plus Dorsalis Pedis Pulse, Splint in place ( left lateral hip), Capillary Refill, Muscle Tone, Motor 5/5 throughout Neurological: Dorsiflexion Intact (LLE), Plantarflexion Intact (LLE) Skin: Warm,Dry and Intact, No rashes, No breakdown. negative: Erythema, Warmth - Assessment and Plan (1) Closed left hip fracture Acute S72.002A - FRACTURE OF UNSP PART OF NECK OF LEFT FEMUR, INIT Present on Admission: Yes initial encounter F S72.002A - Fracture of unspecified part of neck of left femur, initial encounter for closed fracture (2) S/P hip hemiarthroplasty Acute Z96.649 - PRESENCE OF UNSPECIFIED ARTIFICIAL HIP JOINT Present on Admission: No Plan: Patient continues to be very demented and is limited in his ability to participate with PT as a result. Still is TTWB status. Pain seems under control. Still on abx for pneumonia; will likely be discharged with them. He is not eating or drinking much at all. He will need SNF at discharge. We will continue to follow.
[2016-05-24] MEDS: CALCIUM CARBONATE + VITAMIN D 500 MG TAB PO SCH ×2 (11:41→17:23)
[2016-05-24] MEDS: VITAMINS, MULTIPLE CAP PO SCH (11:41)
[2016-05-24] MEDS: CEFTRIAXONE 1 GM in D5W 100 ML IV SCH (12:52)
[2016-05-24] MEDS ORDERED: Vaccine Screening Complete SCH (14:00)
[2016-05-24 14:30] VITALS: BMI 19.3
[2016-05-24] MEDS: Levofloxacin 750 mg/150 ml D5W 750 MG/150 ML RTU IV SCH (15:51)
[2016-05-24] MEDS: LORAZEPAM 2 MG/ML VIAL IV PRN (20:51)
[2016-05-24] MEDS: DOCUSATE-SENNA CONCENTRATE TAB PO SCH (22:43)
[2016-05-24] MEDS: ASPIRIN 300 MG SUPP PR SCH (22:48)
[2016-05-24] MEDS: hydrALAZINE 20 MG/ML VIAL IV PRN (22:55)
[2016-05-25] MEDS: ISOSORBIDE MONONITRATE 30 MG TAB PO SCH (06:15)
[2016-05-25] MEDS: SODIUM CHLORIDE 0.9% 3 ML FLUSH FLUSH SCH ×2 (06:16→16:00)
[2016-05-25] MEDS: QUETIAPINE FUMARATE 25 MG TAB PO SCH ×2 (06:16→12:40)
[2016-05-25] MEDS: PANTOPRAZOLE 40 MG TAB PO SCH (06:16)
[2016-05-25] MEDS: TAMSULOSIN HCL 0.4 MG CAP PO SCH (08:04)
[2016-05-25] MEDS: DUTASTERIDE 0.5 MG CAP PO SCH (08:04)
[2016-05-25] MEDS: NS 1,000 ML IV SCH (08:04)
--- NOTE | 2016-05-25 08:05 | PCM.ORTHBL ---
[id number] Daily Assessment - Patient: Reports: No new complaints, Afebrile. Denies: Awake Alert Oriented x4, Shortness of breath, Nausea, Vomiting - Objective / Physical Exam Vital Signs: Temperature: 98.0 F (05/25/16 06:00) HR: 68 (05/25/16 06:00)RR: 16 (05/25/16 06: 00) BP: 122/79 (05/25/16 06:00)Pulse Ox: 95 (05/25/16 06:00) General: No acute distress. negative: Alert, Oriented x3 Musculoskeletal / Extremities: 2 plus Dorsalis Pedis Pulse, Dressing Clean/Dry/ Intact, Capillary Refill, Muscle Tone, Motor 5/5 throughout Neurological: Dorsiflexion Intact, Plantarflexion Intact Skin: Warm,Dry and Intact, No rashes, No breakdown - Assessment and Plan (1) Closed left hip fracture Acute S72.002A - FRACTURE OF UNSP PART OF NECK OF LEFT FEMUR, INIT Present on Admission: Yes initial encounter F S72.002A - Fracture of unspecified part of neck of left femur, initial encounter for closed fracture (2) S/P hip hemiarthroplasty Acute Z96.649 - PRESENCE OF UNSPECIFIED ARTIFICIAL HIP JOINT Present on Admission: No Plan: Patient severely demented but improving as expected. Continue WBAT with PT and OT. Continue pain management and DVT prophylaxis with SCDs and TEDs. Stable for discharge per ortho.
[2016-05-25] MEDS: ASPIRIN 300 MG SUPP PR SCH (09:03)
[2016-05-25] MEDS: VITAMINS, MULTIPLE CAP PO SCH (10:49)
[2016-05-25] MEDS: CALCIUM CARBONATE + VITAMIN D 500 MG TAB PO SCH ×2 (10:49→16:41)
[2016-05-25] MEDS: CEFTRIAXONE 1 GM in D5W 100 ML IV SCH (12:40)
[2016-05-25 14:20] VITALS: BP 155/71; PULSE 69; TEMP 98.3
--- NOTE | 2016-05-25 16:16 | PCM.DCS92 ---
- Final/Secondary Discharge Diagnosis (1) Closed left hip fracture Acute S72.002A - FRACTURE OF UNSP PART OF NECK OF LEFT FEMUR, INIT Present on Admission: Yes initial encounter F S72.002A - Fracture of unspecified part of neck of left femur, initial encounter for closed fracture Comment: Stable overnight. S/P surgery 05/19/16. Overall stable. Plan transfer to long-term facility today. (2) Anemia Acute D64.9 - ANEMIA, UNSPECIFIED iron deficiency chronic blood loss V F B H O D50.0 - Iron deficiency anemia secondary to blood loss (chronic) Comment: Hemoglobin stable. No need for transfusion. (3) Alzheimer's dementia Chronic G30.9 - ALZHEIMER'S DISEASE, UNSPECIFIED; F02.80 - DEMENTIA IN OTH DISEASES CLASSD ELSWHR W/O BEHAVRL DISTURB Comment: Severe. Cooperating in his care (4) CAD (coronary artery disease) Chronic I25.10 - ATHSCL HEART DISEASE OF [place] CORONARY ARTERY W/O ANG PCTRS [place] artery [place] heart without angina I25.10 - Atherosclerotic heart disease of [place] coronary artery without angina pectoris Comment: Continue home medications and monitor (5) Aspiration pneumonia Acute J69.0 - PNEUMONITIS DUE TO INHALATION OF FOOD AND VOMIT due to gastric secretions right lower lobe of lung J69.0 - Pneumonitis due to inhalation of food and vomit Comment: Afebrile with normal oxygenation. Stable for transfer to long-term facility Discharge Disposition: [facility] Discharge Condition: Improved Cognitive Discharge Status: Unable to communicate needs Fuctional Discharge Status: Total Assistance Required, Recent lower extremety joint replacement Physician Follow up/Referrals: Israel Burden DO [Staff Physician] - Two Weeks Arvind Loo MD [Primary Care Provider] - One Week Home Medications / New Prescriptions: New Aspirin (OrangeEnteric Coated) [Ecotrin] 325 mg PO BIDWM #60 tablet Levofloxacin [Levaquin] 750 mg PO DAILY #3 tablet Continue Isosorbide Mononitrate [Isosorbide Mononitrate ER] 30 mg PO DAILY Omeprazole [Prilosec] 20 mg PO BID Dutasteride [Avodart] 0.5 mg PO DAILY Alfuzosin HCl [Alfuzosin HCl ER] 10 mg PO DAILY Quetiapine Fumarate [Seroquel] 25 mg PO TID Acetaminophen [Mapap] 1,000 mg PO Q6H PRN PRN Reason: PAIN/FEVER>100 Oxycodone Immediate Release [Oxycodone Immediate Release (OxyIR)] 5 mg PO Q4H PRN #40 tablet PRN Reason: Pain Discharge Home Medication List Alfuzosin HCl [Alfuzosin HCl ER] 10 mg PO DAILY 09/02/14 [History Confirmed Last Taken 12/19/15] Dutasteride [Avodart] 0.5 mg PO DAILY 09/02/14 [History Confirmed 05/17/16 Last Taken 12/19/15] Isosorbide Mononitrate [Isosorbide Mononitrate ER] 30 mg PO DAILY 09/02/14 [ History Confirmed 05/17/16 Last Taken 12/19/15] Omeprazole [Prilosec] 20 mg PO BID 09/02/14 [History Confirmed 05/17/16 Last Taken 12/19/15] Quetiapine Fumarate [Seroquel] 25 mg PO TID 10/25/15 [History Confirmed Last Taken 12/19/15] Acetaminophen [Mapap] 1,000 mg PO Q6H PRN 05/17/16 [History Confirmed 05/17/16 Last Taken Unknown] Aspirin (OrangeEnteric Coated) [Ecotrin] 325 mg PO BIDWM #60 tablet 05/20/16 [ Rx Last Taken Unknown] Levofloxacin [Levaquin] 750 mg PO DAILY #3 tablet 05/25/16 [Rx Last Taken Unknown] Oxycodone Immediate Release [Oxycodone Immediate Release (OxyIR)] 5 mg PO Q4H PRN #40 tablet 05/25/16 [Rx Last Taken Unknown] O2 Device: Room Air Diet at Discharge: As Tolerated Activity: Limited (TTWB on LLE) Call Office For: Worsening Symptoms, Wound is Draining Pus, Fever over 101 F, Pain Uncontrolled By Meds Discontinue use of:: Alcohol, All Illegal Substances, All Types of Tobacco - DC Summary Notes Hospital Course Note:: Discharge summary on patient named ALFRED LUNDBERG SR admitted to [facility] on 05/17/16 by Emmanuel Live MD. Date of discharge is []. Mr. Lundberg is a chronically ill 80-year-old white male with history of severe dementia who currently resides in assisted living facility he was brought to the emergency room after a fall. Details of this fall were unavailable and he was unable provide any history however he was found to have a left hip fracture. He was admitted to the hospital for further evaluation and management. Orthopedics was consulted and he underwent a left hip hemiarthroplasty. Initial immediate postop course was uncomplicated however on day 2 after surgery he developed fever, coughing congestion. A chest x-ray confirmed a right lower lobe pneumonia. He was treated for aspiration pneumonia and has been monitored for the last several days. For 72 hours he has not had any fever and has been resting comfortably on room air. As noted above he is unable to purchase a patent is care but has remained otherwise stable. At this point he has reached maximal hospital benefit and is stable for discharge to long-term facility. Total Time: 50 minutes Wound Care Surgical Site: Yes Site Description (if applicable): left lateral hip Remove Clear Dressing In How Many Days?: remove aquacel on POD #7 - Physical Exam Vital Signs: Last Vital Signs Temp 98.3 F 05/25/16 14:19 Pulse 69 05/25/16 14:19 Resp 19 05/25/16 14:19 BP 155/71 05/25/16 14:19 Pulse Ox 98 05/25/16 14:19 Oxygen Pulse Oxygen Saturation 98 O2 Device Room Air Oxygen Flow Rate 1 Fraction of Inspired Oxygen ( FIO2) Constitutional: No apparent distress, Confused, Well nourished, Well appearing Oriented to: Not Oriented - HEENT Head: Normal ( normocephalic) Eye: Normal (PERRL, EOMI, Sclera white) Oropharynx: Normal (Pharynx:Moist without exudate,Gums-no swelling) Tympanic Membrane: Normal ENT EAC: Normal TMJ: Normal Nose: No Symptoms Reported (septum midline) - Respiratory/Cardiovascular Respiratory: Normal - CTA, Diminished - GI Auscultation: Normal (NABS) Palpation: Normal (Soft,No rebound or guarding, non distended) Tenderness: Non tender Burrell's Sign: Negative - Musculoskeletal Extremities: Pedal Pulse (2+), Other (LLE: Shortened and externally rotated. Tender to palpation of groin and positive log roll. No erythema or ecchymosis. Skin intact. ROM not tested. Pedal pulse 2+ and brisk capillary refill.) - Integumentary Skin: Warm, Cool, Dry Lymphatics: Normal - Neurologic Memory Impaired: Short-term, Long-term, Unable to Test Motor Function: Normal Cranial Nerve: Normal Cerebellar: Normal Mood Description: Normal Perception: Normal
== END 2016-05-25 18:45 | DRG 469 ==
LOC: ED 21:34 → MPS3 23:33
PROVIDERS: ADMIT Internal Medicine; ATTEND Hospitalist
PROC: 0QH904Z Insertion of Internal Fixation Device into Left Femoral Shaft, Open Approach (ICD-10-PCS; 2016-05-19)
PROC: 0SRS0J9 Replacement of Left Hip Joint, Femoral Surface with Synthetic Substitute, Cemented, Open Approach (ICD-10-PCS; principal; 2016-05-19 07:30)
DX: S72.002A Fracture of unspecified part of neck of left femur, initial encounter for closed fracture (principal); J69.0 Pneumonitis due to inhalation of food and vomit; G30.9 Alzheimer's disease, unspecified; F02.80 Dementia in other diseases classified elsewhere, unspecified severity, without behavioral disturbance, psychotic disturbance, mood disturbance, and anxiety; M96.662 Fracture of femur following insertion of orthopedic implant, joint prosthesis, or bone plate, left leg; J95.89 Other postprocedural complications and disorders of respiratory system, not elsewhere classified; W19.XXXA Unspecified fall, initial encounter; Y92.129 Unspecified place in nursing home as the place of occurrence of the external cause; E86.0 Dehydration; D50.0 Iron deficiency anemia secondary to blood loss (chronic); R91.1 Solitary pulmonary nodule; Y79.3 Surgical instruments, materials and orthopedic devices (including sutures) associated with adverse incidents; Y83.1 Surgical operation with implant of artificial internal device as the cause of abnormal reaction of the patient, or of later complication, without mention of misadventure at the time of the procedure; I10 Essential (primary) hypertension; I25.10 Atherosclerotic heart disease of native coronary artery without angina pectoris; E78.00 Pure hypercholesterolemia, unspecified; K21.9 Gastro-esophageal reflux disease without esophagitis; Z87.891 Personal history of nicotine dependence; Z79.899 Other long term (current) drug therapy
CPT/HCPCS: 36415; 71010; 73502; 80048; 80053; 81001; 82306; 82550; 83735; 84484; 85014; 85018; 85025; 85027; 85610; 85730; 86850; 86900; 86901; 86920; 87040; 87086; 87641; 93005; 96372; 96374; 96375; 97162; 97166; 99284; C9290; J0131; J0330; J0360; J0690; J0696; J1170; J1200; J1630; J1642; J1956; J2001; J2060; J2270; J2405; J2710; J3010; J3490; J7030; J7060